=== PATIENT | female | born 1960 | race Caucasian/White ===

== ENCOUNTER 2020-07-02 02:43 | Outpatient (CLI) | payer BC, SELFPAY ==
--- NOTE | 2020-07-02 07:15 | DI.MAMMO_ITS ---
EXAM: MAMMO SCREENING CLINICAL HISTORY: screening,Z12.39. TECHNIQUE: Bilateral full field digital CC and MLO mammographic images were obtained with 3D tomosyn thesis and utilizing computer aided detection (CAD). COMPARISON: Prior outside mammograms dating back to 2012, the most recent being May 2018. FINDINGS: No new significant radiograph findings in the right breast. In the left breast on the CC 3D image there is a 8 x 3 millimeter nodular density located 5 cm in fro m the nipple. Not evident on prior studies. No malignant-appearing microcalcification groups in thi s region or elsewhere in either breast. There is no significant architectural distortion nor skin thickening-retraction. IMPRESSION: No radiographic evidence of malignancy in the right breast. 8 x 3 millimeter nodular density in the left breast as described above. Spot compression and view an d ultrasound recommended. BI-RADS Category 0 - Assessment Incomplete: Need additional imaging evaluation Breast Density - Category B - Scattered areas of fibroglandular density Breast density Category C or D implies that the patient has dense breast tissue. Dense breast tissue can make it harder to find cancer on a mammogram. Dense breast tissue is also associated with an incr eased risk of breast cancer. This information about the result of the mammogram report was provided to the patient to raise their awareness. Use this report when you speak with the patient about their risks for breast cancer, which includes their family history. At that time, you may recommend additional screening tests (Ultrasoun d or MRI) as these tests may add significant information. A negative radiographic report should not delay biopsy if a dominant or clinically suspicious mass is present. Up to ten percent of cancers are not identified on mammography. A negative report may reinforce clinical impression. Adenosis and dense breasts may obscure an underlying neoplasm. False positive reports average 6 to 10%. Patient will receive a letter notifying them of these results.
== END 2020-07-02 03:03 ==
PROVIDERS: PCP Nurse Practitioner Family; Visit Provider Nurse Practitioner Family
DX: Z12.31 Encounter for screening mammogram for malignant neoplasm of breast (principal); R92.8 Other abnormal and inconclusive findings on diagnostic imaging of breast
CPT/HCPCS: 77063; 77067

== ENCOUNTER 2020-07-12 01:27 | Outpatient (CLI) | payer BC, SELFPAY ==
--- NOTE | 2020-07-12 14:05 | DI.MAMMO_ITS ---
EXAM: MG MAMMO SCREEN CALL BACK UNI CLINICAL HISTORY: F/U MAMMO, LT BREAST NODULAR DENSITY TECHNIQUE: Spot compression views with tomographic imaging were performed. COMPARISON: 2012 through June 24 FINDINGS: No suspicious masses or suspicious microcalcifications are seen. There is a circumscribed low-density area of ovoid nodularity seen in the central, inferior left elen st. It is visible on previous exams and is not changed. IMPRESSION: BI-RADS Category 2 - Benign Findings Yearly screening mammography is recommended. Breast Density - Category B, scattered fibroglandular densities.
== END 2020-07-12 01:47 ==
PROVIDERS: PCP Nurse Practitioner Family; Visit Provider Nurse Practitioner Family
DX: Z12.31 Encounter for screening mammogram for malignant neoplasm of breast (principal); R92.8 Other abnormal and inconclusive findings on diagnostic imaging of breast; N64.59 Other signs and symptoms in breast
CPT/HCPCS: 77063; 77067

== ENCOUNTER 2020-08-09 21:42 | Outpatient (REF) | payer BC, SELFPAY ==
[2020-08-09 21:26] LABS: Anion Gap 9.7 mmol/L (3-11); BUN 14 mg/dL (7-18); CO2 29.3 mmol/L (21.0-32.0); CREATININE 0.8 mg/dL (0.55-1.02); Calcium 9.3 mg/dL (8.5-10.1); Calculated LDL 142 mg/dL (<100); Chloride 101 mmol/L (98-107); Cholesterol 209 mg/dL (<200); Glucose 96 mg/dL (74-106); HDL Cholesterol 44 mg/dL (40-60); Sodium 140 mmol/L (136-145); Triglyceride 118 mg/dL (<150)
[2020-08-09 21:30] LABS: Hemoglobin A1C 5.5 % (<5.7)
== END 2020-08-09 21:43 | disposition home or self-care (01) ==
LOC: NCHCN 21:42
PROVIDERS: PCP Nurse Practitioner Family; Visit Provider Nurse Practitioner Family
DX: E78.5 Hyperlipidemia, unspecified (principal)
CPT/HCPCS: 80048; 80061; 83036

== ENCOUNTER 2020-12-21 14:38 | Outpatient (REF) | payer BC, SELFPAY ==
[2020-12-21 18:10] LABS: HCT 42.1 % (36.0-46.0); HGB 13.7 g/dL (11.2-15.7); MCH 29.5 pg (27.0-33.0); MCHC 32.5 % (32.0-36.0); MCV 90.7 fL (80-95); MPV 10.4 fL (8.0-11.0); Platelet Count 361 10^3/uL (130-400); RBC 4.64 10^6/uL (3.93-5.22); RDW 12.1 % (11.7-14.6); RDW-SD 39.9 fL; WBC 5.73 10^3/uL (4.4-10.8)
[2020-12-21 18:14] LABS: ALT 27 U/L (14-59); AST 15 U/L (15-37); Albumin 3.7 g/dL (3.4-5.0); Alkaline Phosphatase 130 U/L (46-116); Anion Gap 3.5 mmol/L (3-11); BUN 9 mg/dL (7-18); Bilirubin, Total 0.4 mg/dL (0.2-1.0); CO2 31.5 mmol/L (21.0-32.0); CREATININE 0.8 mg/dL (0.55-1.02); Calcium 9.2 mg/dL (8.5-10.1); Chloride 104 mmol/L (98-107); Glucose 92 mg/dL (74-106); Potassium 3.9 mmol/L (3.5-5.1); Sodium 139 mmol/L (136-145); Total Protein 7.1 g/dL (6.4-8.2)
== END 2020-12-21 14:39 | disposition home or self-care (01) ==
LOC: LBN 14:38
PROVIDERS: PCP Nurse Practitioner Family; Visit Provider Nurse Practitioner Family
DX: Z01.818 Encounter for other preprocedural examination (principal)
CPT/HCPCS: 80053; 85027

== ENCOUNTER → 2021-10-11 00:07 | Outpatient (CLI) | payer BC, SELFPAY ==
--- OUTSIDE RECORDS SUMMARY | 2021-10-11 00:12 | XMS_ITS | Encounter Summary ---
:1960 Author Organization [facility] Address [facility] [place] [address] Care Team Providers Name Role Phone Erlinda Sears APRN Primary Care Provider Reason for Visit Consultation (Routine) - Authorized Specialty Diagnoses / Procedures Referred By Contact Refer red To Contact Dermatology Diagnoses Encounter for screening for malignant neoplasm of skin Erlinda Sears APRN [facility] Dermatology [address] [place], [place] [address] [place] [address] Fax: Referral ID Status Reason Start Expiration Visits Visits Date Date Requested Authorized [id number] Authorized Consult, 03/20/2022 6 6 Test & Treat 1 [facility] PCP Updated and/or Approved Encounter Details Date Type Department Care Team Description 06/27/2021 Office Visit Dermatology at [facility] F amily history of melanoma; Lina MAURO Folliculitis; [address] [facility] Seborrheic keratosis; [place] [address] Melanocytic nevus, unspecified location; [phone]-DERMATOLOGY [place], [place] [address] Social History Tobacco Use Types Packs/Day Years Used Date Never Smoker Smokeless Tobacco: Never Used Sex Assigned at Date Recorded Female 06/26/2021 6:08 PM EDT documented as of this encounter Progress Notes Ashley Raphael MD - 06/27/2021 3:30 PM EDT Images from the original note were not included. DEPARTMENT OF DERMATOLOGY Medical Dermatology Clinic Provider: Ashley Raphael MD Patient's preferred name Shayla Preferred contact method for results []Phone [x]myD-H []Letter Detailed phone message OK? yes Are there any other people with whom we may discuss your care? No Past Medical History Date, location, treatment Melanoma No Dysplastic nevi No SCC No BCC Left inner canthus, BCC s/p excision in [place], Year ? AKs No UV Exposure & Protection + history of tanning bed use + history of blistering sunburn Other relevant past medical history Rosacea Family History Details Melanoma Father- & brother? NMSC no Other relevant family history Brother-Prostate CA & UC Social History Occupation: Admin assistance broadcast associate Hobbies: Other: Pre-Procedure Screening Details Allergy to lidocaine, epinephrine, Dermabond, chlorhexidine, or adhesives No Bleeding disorder or blood thinners ASA Pacemaker, defibrillator, deep brain stimulator, cochlear implant No History of Present Illness: Shayla Dow is a 60 y.o. Patient is new and self-referred to the clinic for a full skin cancer screening: - Brown spots on abdomen present unknown times. Asymptomatic. No previous treatment Medications: Reviewed in eD-H Allergies: Reviewed in eD-H Skin Examination: Full skin examination: Patient asked to undress to their comfort level. Verbalized that the provider's preference is that patient remove all clothing and that the provider will not examine areas patient elects to keep covered. Examination of the scalp, hair, head, face, ears, neck, chest, axillae, abdomen, back, buttocks, genitalia, and upper and lower extremities was normal with the exception of thefindings below. Assessment/Plan # Folliculitis vs EIC, uncontrolled, chronic- Patient with scattered follicular-based erythematous papules on the chest & inferior buttocks. Folliculitis occurs due to the inflammation of the superficial hair follicle. The etiology can be variable including bacterial, fungal, viral although non in fectious cases have also been reported. In immunocompetent patients, predisposing factors include occulusion, maceration, shaving, vigorous application of topical medications or contaminated water. Medications including prolonged antibiotics, prednisone and EGFR inhibitors are also associated with thedisease. Plan: - Start chlorhexidine wash 2-4 times weekly in shower. -For active cysts start - Start Rx clindamycin 1% lotion: Apply topically to affected areas on the groin twice daily as needed. -Start Clindamycin swabs: Spot treat as needed. -Start Nystatin power: Apply topically to groin & under breasts up to 4 times daily to help keeparea dry. # Melanocytic Nevi- 2-6mm brown macules on trunk and extremities with reassuring pigment pattern on dermoscopy - Discussed benign appearing nevi based on today's exam - Reviewed the ABCDEs of moles and melanoma with the patient in detail to guide regular self assessment of any pigmented lesions. - Discussed the importance of sun protection and sun avoidance. The patient encouraged to use a broad sunscreen of at least SPF 30, with reapplication every 2 hours, to apply at least 15 minutes prior to sun exposure. - Recommended follow-up with dermatology if any changes in any pigmented lesions are noted or any concerns regarding new lesions arise. # Seborrheic keratoses - slaughter/brown waxy stuck-on papules and plaques on the trunk and extremities. - Reassured of the benign nature of these lesions - No treatment needed # Rosacea, stable, chronic - erythematotelangiectatic type - diffuse erythema and dilated telangiectasias on the bilateral cheeks. - Reviewed triggers for rosacea (alcohol, exercise, hot foods/drinks, spicy foods, sun exposure) andpoor response of erythema to medical managment. Discussed possible use of cover up or laser therapy including cost of laser therapy as it is a cosmetic procedure. - Patient opted to monitor # Family hx of melanoma -Father - Continue regular skin exams and photoprotection Other: ??? Sun protection discussed (protective clothing and SPF30+ broad-spectrum sunscreen) RTC: 1 year FSE []Note routed to secretary of police [x]Recall placed in scheduling system []Appointment scheduled at checkout Scribe attestation: Shayy Carbajla LPN has performed the documentation for this encounter in the presence of and acting as a scribe for Ashley Raphael MD. I performed the above scribed service and agree with the accuracy of the documentation in this encounter. Reviewed and signed by: Ashley Raphael MD Dermatology On [facility] documented in this encounter Plan of Treatment Not on filedocumented as of this encounter Visit Diagnoses Diagnosis Family history of melanoma Family history of other specified malign ant neoplasm Folliculitis Other specified disease of hair and hair follicles Seborrheic keratosis Other seborrheic keratosis Melanocytic nevus, unspecified location Rosacea documented in this encounter Care Teams Vocational Training Director Relationship Specialty Start Date End Date Erlinda Sears APRN PCP - General Family Medicine 05/07/[address] [place] [address] documented as of this encounter
--- OUTSIDE RECORDS SUMMARY | 2021-10-11 00:12 | XMS_ITS | Clinical Summary ---
:1960 Author Organization [facility] [place] [address] Care Team Providers Name Role Phone KikoErlinda tillman ROBERTO Primary Care Provider Allergies Active Allergy Reactions Severity Noted Date Comments Sulfa (Sulfonamide Antibiotics) Hives Medications Medication Sig Dispensed Refills Start Date End Date Status buPROPion SR (Wellbutrin TAKE 1 TABLET 0 08/16/2020 Active SR) 200 mg tablet BY MOUTH TWICE sustained-release 12 hr DAILY dextroamphetamine-ampheta 0 08/15/2020 Active mine (Adderall) 10 mg Tablet LORazepam (Ativan) 1 mg TAKE 1 TABLET 0 06/27/2020 Active Tablet BY MOUTH AT BEDTIME hydroCHLOROthiazide TAKE 1 TABLET 0 06/27/2020 Active (Hydrodiuril) 25 mg BY MOUTH DAILY Tablet clindamycin (CLEOCIN T) 1 Apply topically 60 mL 3 06/28/19 22 Active % LotionIndications: 2 times daily. Folliculitis clindamycin phosphate Apply once or 60 each 3 06/27/2021 Active (Clindacin ETZ) 1 % twice daily for SwabIndications: affected areas. Folliculitis nystatin (MYCOSTATIN) Apply topically 60 g 3 06/27/2021 Active 100,000 unit/gram 4 times daily. PowderIndications: Folliculitis Active Problems No known active problems Social History Tobacco Use Types Packs/Day Years Used Date Never Smoker Smokeless Tobacco: Never Used Sex Assigned at Date Recorded Female 06/26/2021 6:08 PM EDT Last Filed Vital Signs Vital Sign Reading Time Taken Comments Blood Pressure - - Pulse - - Temperature - - Respiratory Rate - - Oxygen Saturation - - Inhaled Oxygen Concentration - - Weight 121.6 kg (268 lb) 08/23/2020 1:37 PM EDT Height 168.1 cm (5' 6.2) 08/23/2020 1:37 PM EDT Body Mass Index 43 08/23/2020 1:37 PM EDT Plan of Treatment Health Maintenance Due Date Last Done Comments Covid-19 Vaccine (#1) 1966 HIV screen 10/16/1979 Hepatitis C Screening 10/16/1979 Lipid Screening 10/16/1979 Tdap adult 1980 Tetanus vaccine 1980 HPV test 10/16/1991 PAP Smear 10/16/1991 Breast Cancer Share Decision Needed 2001 Diabetes Screening (HgbA1C or Glucose) 2001 Colonoscopy 2006 Breast Cancer screening 10/16/2011 Zoster vaccine (1 of 2) 10/16/2011 Advance Directive 2016 Influenza (Flu) vaccine (1 of 1 - Influenza standard 12/05/2021 series) Insurance Payer Benefit Plan / Subscriber ID Effective Dates Phone Addre ss Type Group [employer] [place] [id number] 2020-Present [address] [place] [address] (Home) [place] [address] Shayla Dow Third Republican Self 1960 [address] [facility] (Home) [place] [address] Care Teams Slab Puller Relationship Specialty Start Date End Date Erlinda Sears APRN PCP - General Family Medicine 05/07/[address] [place], [place] [address]
--- OUTSIDE RECORDS SUMMARY | 2021-10-11 00:12 | XMS_ITS | Encounter Summary ---
:1960 Author Organization [facility] [place] [address] Care Team Providers Name Role Phone Erlinda Sears APRN Primary Care Provider Encounter Details Date Type Department Care Team Description 02/12/2021 External Results [place]Ray [place] [facility] [place] [address] [place] [address] Social History Tobacco Use Types Packs/Day Years Used Date Never Smoker Smokeless Tobacco: Never Used Sex Assigned at Date Recorded Female 06/26/2021 6:08 PM EDT documented as of this encounter Plan of Treatment Not on filedocumented as of this encounter Procedures Procedure Name Priority Date/Time Associated Diagnosis Comme nts MAMMOGRAM SCAN Routine 05/07/2011 Results for t his procedure are in the resu lts section. documented in this encounter Results Scan Doc: Mammogram (05/07/2011) Anatomical Region Laterality Modality Other Narrative This result has an attachment that is no t available. Unknown MEDIA MGR SCAN EXT ORDR/RSLT documented in this encounter Visit Diagnoses Not on filedocumented in this encounter Care Teams Crib Attendant Relationship Specialty Start Date End Date Erlinda Sears APRN PCP - General Family Medicine 05/07/[address] [place] [address] documented as of this encounter
--- OUTSIDE RECORDS SUMMARY | 2021-10-11 00:12 | XMS_ITS | Encounter Summary ---
:1960 Author Organization [facility] [place] [address] Care Team Providers Name Role Phone Erlinda Sears APRN Primary Care Provider Encounter Details Date Type Department Care Team Description 10/04/2020 TH Visit Plastic Surgery at [facility] Mane Queen, Macromastia (TeleHealth) [place] [address] [address] [phone] PLASTIC SURGERY [place], [place] [address] (Wo rk) Social History Tobacco Use Types Packs/Day Years Used Date Never Smoker Smokeless Tobacco: Never Used Sex Assigned at Date Recorded Female 06/26/2021 6:08 PM EDT documented as of this encounter Progress Notes Ivone Cotton H - 10/04/2020 3:00 PM EDT Plastic Surgery Follow Up Visit (Via telehealth) Plastic Surgery Follow Up Note Provider: Mane Queen M.D. PCP: Erlinda Sears APRN Requesting Physician: as above Reason for office visit: Symptomatic macromastia HPI: Patient presents via telehealth to finalize surgical planning for a breast reduction and to seeif she has achieved her goal loosing additional weight. She has last 10 pounds since her last visit.She is continues with OT for her bilateral shoulder pain. She is wondering if she may need to be admitted post surgery. She has financial concerns and wondersif this would cost her extra since this care is considered out of network. Breasts Bra size: 42DDD Goal cup size: unsure Breast Measurements Right Left Ptosis III III Masses - - Shoulder grooves + + Rash At IMF At IMF Axillary rolls Large Large Surgical Scars None None Breast Vol (estimate in cc) 1999 1999 Resection (estimate in gms) 1000 1000 Impression: Symptomatic bilateral breast hypertrophy. Bilateral breast reduction is indicated for relief of her breast-related symptoms. She watched the [facility] video on breast reduction, and was providedwith an ASPS brochure and informed consent on breast reduction. It reviews the surgical risks, alternate skin incisions and pedicle versus free nipple graft techniques. It also discusses the option of volume reduction by liposuction alone, which does not alter the nipple-areolar complex position. It talks about the impact of this surgery on decreasing breast cancer risk. We reviewed the timing of surgery relative to weight fluctuations and I've advised that surgery is best done at a realistic detention stable weight. We talked about the outpatient nature of the surgery,drains, postoperative recovery, and time required off work. The following risks were reviewed in the video or in our discussion: Surgical Risks which are greater with open reduction: bleeding with risk of hematoma (<5%); numbness, which may be temporary or permanent; scarring, including abnormal scarring; infection (5-10%); fat necrosis resulting in a breast mass and possible need for revision. I stressed the likelihood of minor problems with delayed wound healing (~30%) and the rare complication of nippleareolar necrosis. She is also aware that there may be some residual pain after the surgery and that there may possibly be some asymmetry. Vertical or Lollipop Incision: Less scarring on breast, but slightly greater risk for delayed healing and desire for scar revision. (She was informed that her insurer might not cover secondary revisions for scarring or asymmetry.) Jarquin or Turin Pattern Incision: More scarring on breast, but lower risk for scar revision. (She wasinformed that her insurer might not cover secondary revisions for scarring or asymmetry.) Pedicle Technique: volume of reduction may be limited by need to provide an adequate blood supply tothe nipple. There is a very small risk of nipple loss. Most women (~60%) will be able to breast-feed. Free Nipple Graft: The grafts will initially have no sensation and once fully healed may not respondto temperature and touch as they do now. She has also been informed that they may not look entirely normal and may have patchy hypopigmentation. She will not be able to breast feed with this technique. After fully discussing the options, she has opted to pursue a: Bilateral Breast Reduction Vertical, Pedicle Bilateral Breast Reduction Jarquin, Pedicle x Bilateral Breast Reduction Jarquin, FNG Anticipated resection: 1,000 grams right breast 1,000 grams left breast BSA [employer] Medicaid All other / [place] BSA [employer]/[place] Medicaid All others ([place]) 2.40 1000 [id number] Photos taken today with informed signed consent Potential Surgery Booking Information: Surgeon: Bret Duration: 2.5 hours Timeframe: Elective (January) Procedure: Bilateral breast reduction (possible drain placement) CPT: 67529 Surgical Technique: Bilateral Breast Reduction Jarquin, FNG Surgical site: Breasts Side: Bilateral Anesthesia: General Follow up: 7-10 days for HCK THHF: Y/N: no 4-7 day f/u for bolster removal) H&P: With PCP: yes Need to discontinue blood thinners pre-op? no Need mammogram? (at or over 40)yes Plan: Proceed with BBR Follow up one week post op bhavya Pope have performed the documentation for this encounter in the presence of and acting asa scribe for Mnae Queen MD. documented in this encounter Plan of Treatment Not on filedocumented as of this encounter Visit Diagnoses Diagnosis Macromastia Hypertrophy of breast documented in this encounter Care Teams Sole Inker Relationship Specialty Start Date End Date Erlinda Sears APRN PCP - General Family Medicine 05/07/20 [facility] [address] [place] [address] documented as of this encounter
--- OUTSIDE RECORDS SUMMARY | 2021-10-11 00:13 | XMS_ITS | Encounter Summary ---
:1960 Author Organization [place] [address] Care Team Providers Name Role Phone Moisés Das MD Primary Care Provider Encounter Details Date Type Department Care Team Description 02/03/2017 Ancillary Procedure Radiology Library at [facility] [address] [phone] Social History Tobacco Use Types Packs/Day Years Used Date Never Assessed Sex Assigned at Date Recorded Female 06/26/2021 6:08 PM EDT documented as of this encounter Plan of Treatment Not on filedocumented as of this encounter Procedures Procedure Name Priority Date/Time Associated Diagnosis Comme nts FILM LIBRARY Routine 02/03/2017 12:00 AM Results for this STORAGE ONLY MAMMO EDT procedure are in the results section. documented in this encounter Results Film Library- Storage Only Mammo (02/03/2017 12:00 AM EDT) Specimen (Source) Anatomical Location Collection Method / Collectio n Time Received Time / Laterality Volume Narrative RAD - 02/11/2021 4:24 PM EST This exam is auto-finalizing. It's purpo se is for storage only. Erlinda Sears CASE LINER [facility] FILM LIBRARY ORDERABLES Performing Organization Address City/State/ZIP Code Phon e Number RAD [place], [place] documented in this encounter Visit Diagnoses Not on filedocumented in this encounter Care Teams Agriculture Instructor Relationship Specialty Start Date End Date Moisés Das MD PCP - General 02/26/10 05/06/20 EMERGENCY DEPT [address] [place] [address] documented as of this encounter
--- OUTSIDE RECORDS SUMMARY | 2021-10-11 00:13 | XMS_ITS | Encounter Summary ---
:1960 Author Organization [facility] [place] [address] Care Team Providers Name Role Phone Moisés Das MD Primary Care Provider Encounter Details Date Type Department Care Team Description 06/02/2018 Ancillary Procedure Radiology Library at [facility] [address] [phone] Social History Tobacco Use Types Packs/Day Years Used Date Never Assessed Sex Assigned at Date Recorded Female 06/26/2021 6:08 PM EDT documented as of this encounter Plan of Treatment Not on filedocumented as of this encounter Procedures Procedure Name Priority Date/Time Associated Diagnosis Comme nts FILM LIBRARY Routine 06/02/2018 12:00 AM Results for this STORAGE ONLY MAMMO EST procedure are in the results section. documented in this encounter Results Film Library- Storage Only Mammo (06/02/2018 12:00 AM EST) Specimen (Source) Anatomical Location Collection Method / Collectio n Time Received Time / Laterality Volume Narrative RAD - 02/11/2021 4:25 PM EST This exam is auto-finalizing. It's purpo se is for storage only. Erlinda Sears PREVENTION RN [facility] FILM LIBRARY ORDERABLES Performing Organization Address City/State/ZIP Code Phon e Number [place], [place] documented in this encounter Visit Diagnoses Not on filedocumented in this encounter Care Teams Geriatric Social Work Professor Relationship Specialty Start Date End Date Moisés Das MD PCP - General 02/26/10 05/06/20 EMERGENCY DEPT [address] [place] [address] documented as of this encounter
--- OUTSIDE RECORDS SUMMARY | 2021-10-11 00:13 | XMS_ITS | Encounter Summary ---
:1960 [place] [address] Care Team Providers Name Role Phone Erlinda Sears APRN Primary Care Provider Encounter Details Date Type Department Care Team Description 07/12/2020 Ancillary Procedure [facility] [address] [phone] Social History Tobacco Use Types Packs/Day Years Used Date Never Assessed Sex Assigned at Date Recorded Female 06/26/2021 6:08 PM EDT documented as of this encounter Plan of Treatment Not on filedocumented as of this encounter Procedures Procedure Name Priority Date/Time Associated Diagnosis Comme nts FILM LIBRARY Routine 07/12/2020 12:00 AM Results for this STORAGE ONLY MAMMO EDT procedure are in the results section. documented in this encounter Results Film Library- Storage Only Mammo (07/12/2020 12:00 AM EDT) Specimen (Source) Anatomical Location Collection Method / Collectio n Time Received Time / Laterality Volume Narrative RAD - 12/18/2020 4:27 PM EDT This exam is auto-finalizing. It's purpo se is for storage only. Erlinda Sears APRN [facility] FILM LIBRARY ORDERABLES Performing Organization Address City/State/ZIP Code Phon e Number [place], [place] documented in this encounter Visit Diagnoses Not on filedocumented in this encounter Care Teams Barrel Rib Matting Machine Operator Relationship Specialty Start Date End Date Erlinda Sears APRN PCP - General Family Medicine 05/07/[address] [place] [address] documented as of this encounter
--- OUTSIDE RECORDS SUMMARY | 2021-10-11 00:13 | XMS_ITS | Encounter Summary ---
:1960 [place] [address] Care Team Providers Name Role Phone Erlinda Sears APRN Primary Care Provider Encounter Details Date Type Department Care Team Description 07/02/2020 Ancillary Procedure Radiology Library at [facility] [address] [phone] Social History Tobacco Use Types Packs/Day Years Used Date Never Assessed Sex Assigned at Date Recorded Female 06/26/2021 6:08 PM EDT documented as of this encounter Plan of Treatment Not on filedocumented as of this encounter Procedures Procedure Name Priority Date/Time Associated Diagnosis Comme nts FILM LIBRARY Routine 07/02/2020 12:00 AM Results for this STORAGE ONLY MAMMO EDT procedure are in the results section. documented in this encounter Results Film Library- Storage Only Mammo (07/02/2020 12:00 AM EDT) Specimen (Source) Anatomical Location Collection Method / Collectio n Time Received Time / Laterality Volume Narrative RAD - 12/18/2020 4:25 PM EDT This exam is auto-finalizing. It's purpo se is for storage only. Erlinda Sears APRN [facility] FILM LIBRARY ORDERABLES Performing Organization Address City/State/ZIP Code Phon e Number [place], [place] documented in this encounter Visit Diagnoses Not on filedocumented in this encounter Care Teams Duck Farmer Relationship Specialty Start Date End Date rElinda Sears APRN PCP - General Family Medicine 05/07/[address] [place] [address] documented as of this encounter
--- OUTSIDE RECORDS SUMMARY | 2021-10-11 00:13 | XMS_ITS | Encounter Summary ---
:1960 Author Organization [facility] [place] [address] Care Team Providers Name Role Phone Moisés Das MD Primary Care Provider Encounter Details Date Type Department Care Team Description 05/16/2014 Ancillary Procedure Radiology Library at Colleen Sears [address] [phone] Social History Tobacco Use Types Packs/Day Years Used Date Never Assessed Sex Assigned at Date Recorded Female 06/26/2021 6:08 PM EDT documented as of this encounter Plan of Treatment Not on filedocumented as of this encounter Procedures Procedure Name Priority Date/Time Associated Diagnosis Comme nts FILM LIBRARY Routine 05/16/2014 12:00 AM Results for this STORAGE ONLY MAMMO EST procedure are in the results section. documented in this encounter Results Film Library- Storage Only Mammo (05/16/2014 12:00 AM EST) Specimen (Source) Anatomical Location Collection Method / Collectio n Time Received Time / Laterality Volume Narrative RAD - 02/11/2021 4:24 PM EST This exam is auto-finalizing. It's purpo se is for storage only. Erlinda Sears STAFF FORESTER [facility] FILM LIBRARY ORDERABLES Performing Organization Address City/State/ZIP Code Phon e Number [place], [place] documented in this encounter Visit Diagnoses Not on filedocumented in this encounter Care Teams City Engineer Relationship Specialty Start Date End Date Moisés Das MD PCP - General 02/26/10 05/06/20 EMERGENCY DEPT [address] [place] [address] documented as of this encounter
--- OUTSIDE RECORDS SUMMARY | 2021-10-11 00:13 | XMS_ITS | Encounter Summary ---
:1960 Author Organization [facility] [place] [address] Care Team Providers Name Role Phone Moisés Das MD Primary Care Provider Encounter Details Date Type Department Care Team Description 01/28/2013 Ancillary Procedure Radiology Library at Colleen Sears [address] [phone] Social History Tobacco Use Types Packs/Day Years Used Date Never Assessed Sex Assigned at Date Recorded Female 06/26/2021 6:08 PM EDT documented as of this encounter Plan of Treatment Not on filedocumented as of this encounter Procedures Procedure Name Priority Date/Time Associated Diagnosis Comme nts FILM LIBRARY Routine 01/28/2013 12:00 AM Results for this STORAGE ONLY MAMMO EDT procedure are in the results section. documented in this encounter Results Film Library- Storage Only Mammo (01/28/2013 12:00 AM EDT) Specimen (Source) Anatomical Location Collection Method / Collectio n Time Received Time / Laterality Volume Narrative RAD - 02/11/2021 4:23 PM EST This exam is auto-finalizing. It's purpo se is for storage only. Erlinda Sears HOMEBIRTH MIDWIFE [facility] FILM LIBRARY ORDERABLES Performing Organization Address City/State/ZIP Code Phon e Number RAD [place], [place] documented in this encounter Visit Diagnoses Not on filedocumented in this encounter Care Teams Electrical Continuity Tester Relationship Specialty Start Date End Date Moisés aDs MD PCP - General 02/26/10 05/06/20 EMERGENCY DEPT [address] [place] [address] documented as of this encounter
--- OUTSIDE RECORDS SUMMARY | 2021-10-11 00:13 | XMS_ITS | Encounter Summary ---
:1960 Author Organization [facility] [place] [address] Care Team Providers Name Role Phone Moisés Das MD Primary Care Provider Encounter Details Date Type Department Care Team Description 03/20/2016 Ancillary Procedure Radiology Library at Colleen Sears [address] [phone] Social History Tobacco Use Types Packs/Day Years Used Date Never Assessed Sex Assigned at Date Recorded Female 06/26/2021 6:08 PM EDT documented as of this encounter Plan of Treatment Not on filedocumented as of this encounter Procedures Procedure Name Priority Date/Time Associated Diagnosis Comme nts FILM LIBRARY Routine 03/20/2016 12:00 AM Results for this STORAGE ONLY MAMMO EST procedure are in the results section. documented in this encounter Results Film Library- Storage Only Mammo (03/20/2016 12:00 AM EST) Specimen (Source) Anatomical Location Collection Method / Collectio n Time Received Time / Laterality Volume Narrative RAD - 02/11/2021 4:24 PM EST This exam is auto-finalizing. It's purpo se is for storage only. Erlinda Sears UTILITY SYSTEM OPERATOR [facility] FILM LIBRARY ORDERABLES Performing Organization Address City/State/ZIP Code Phon e Number [place], [place] documented in this encounter Visit Diagnoses Not on filedocumented in this encounter Care Teams Rejogger Relationship Specialty Start Date End Date Moisés Das MD PCP - General 02/26/10 05/06/20 EMERGENCY DEPT [address] [place] [address] documented as of this encounter
--- OUTSIDE RECORDS SUMMARY | 2021-10-11 00:13 | XMS_ITS | Encounter Summary ---
:1960 Author Organization [facility] [place] [address] Care Team Providers Name Role Phone Erlinda Sears APRN Primary Care Provider Encounter Details Date Type Department Care Team Description 08/09/2020 Telephone Plastic Surgery at [facility] [place] [phone] Social History Tobacco Use Types Packs/Day Years Used Date Never Assessed Sex Assigned at Date Recorded Female 06/26/2021 6:08 PM EDT documented as of this encounter Plan of Treatment Not on filedocumented as of this encounter Visit Diagnoses Not on filedocumented in this encounter Care Teams Automatic Stacker Relationship Specialty Start Date End Date Erlinda Sears APRN PCP - General Family Medicine 05/07/[address] [place] [address] documented as of this encounter
--- OUTSIDE RECORDS SUMMARY | 2021-10-11 00:13 | XMS_ITS | Encounter Summary ---
:1960 Author Organization [place] [address] Care Team Providers Name Role Phone Erlinda Sears APRN Primary Care Provider Reason for Visit Reason Comments Advice Only BBR Consultation (Routine) - Closed Specialty Diagnoses / Procedures Referred By Contact Refer red To Contact Plastic Surgery Diagnoses Hypertrophy of breast macromastia Erlinda Sears APRN [facility] Plastic Surg [address]m [address] [place] [phone] Phone: Referral ID Status Reason Start Date Expiration Date Visits V isits Requested Authorized [id number] Closed Consult, 08/09/2020 08/09/2021 1 1 Test & Treat Encounter Details Date Type Department Care Team Description 08/23/2020 Office Visit Plastic Surgery at [facility] Mane Queen MD [facility] [address] [place] [phone] PLASTIC SURGERY [phone] [place], [place] [address] (Wo rk) Social History Tobacco Use Types Packs/Day Years Used Date Never Smoker Smokeless Tobacco: Never Used Sex Assigned at Date Recorded Female 06/26/2021 6:08 PM EDT documented as of this encounter Last Filed Vital Signs Vital Sign Reading Time Taken Comments Blood Pressure - - Pulse - - Temperature - - Respiratory Rate - - Oxygen Saturation - - Inhaled Oxygen Concentration - - Weight 121.6 kg (268 lb) 08/23/2020 1:37 PM EDT Height 168.1 cm (5' 6.2) 08/23/2020 1:37 PM EDT Body Mass Index 43 08/23/2020 1:37 PM EDT documented in this encounter Patient Instructions Patient InstructionsVooctavia-Deb Gould RMA - 08/23/2020 1:30 PM EDT Preoperative Instructions You have been scheduled to have plastic surgery. The instructions below are specific to your procedure. If you are a smoker, we ask that you stop at least 2 months prior to your surgical date and remain nicotine free for at least a month after surgery. Smoking can impair healing and increase your chance of infection. One Month prior to Surgery Schedule a pre-operative physical with your primary care doctor Two Weeks prior to Surgery Do not take any Aspirin or aspirin containing products for the 2 weeks leading up to surgery. You may resume taking 48 hours after surgery. Do not take medications containing Ibuprofen. Do not take anyanti-steroidal's such as Advil, Aleve, Celebrex, Daypro, Indocin, Midol, Motrin, Naproxen, Nuprin and Toradol. These medications increase your risk of bleeding. You may resume taking any of these medications 48 hours after surgery. Stop Vitamin E, Garlic supplements, Ginseng, Fish Oil tablets, Ginkgo and Ruben's Wort and any other herbals. You may resume taking 48 hours after surgery. If you need medication for pain, you may take Tylenol or extra strength Tylenol during this two weekperiod. One Week prior to Surgery Please call if you feel ill, have cold or fever, have a rash or breaks in the skin near your surgical site. Stay hydrated. Avoid alcohol and recreational drugs Three Days before Surgery Do not shave near your surgical site One Day before Surgery Shower the night before and the morning of surgery using an antibacterial soap (Dial or Lever 2000) or Hibiclens wash The Same Day Surgery Team will call you the business day before your surgery to give you instructions specific to your procedure and your surgical time. Generally, you will be asked not to eat any solids after midnight. You are allowed clear liquids (water, jossy may, apple juice, black coffee and plain tea) until 2 hours prior to your surgery. Day of Surgery A cat driver is required at time of discharge. If you are a Same Day procedure and do not have a cat driver your surgery will be canceled. DO NOT wear any jewelry, makeup or artificial nails the day of surgery. DO NOT apply any lotions, powders or deodorants on or near the surgical site the day of surgery. Do wear comfortable, loose fitting clothes. Anesthesia will meet with you the morning of surgery. They will perform an assessment and review your history with you. [facility] has instituted the requirement of COVID-19 testing for all patient undergoing procedures that require inpatient admission to the facility. A Nurse from the COVID-19 team will reach out to you to assist with the planning and implementation of a COVID-19 test prior to your surgicaldate. Contact Information: During regular office hours (Thursday- Thursday, non-holiday 8:00 am- 5:00 pm) For an appointment or insurance questions For questions pertaining to your surgical date [phone] For nursing related questions [phone] On weekends, holidays or after office hours: Call and ask the heater operator helper to page the Plastic Surgery Resident waste collection driver. documented in this encounter Progress Notes Mane Queen MD - 08/23/2020 1:30 PM EDT Plastic Surgery Consultation Note Provider: Mane Queen M.D. PCP: Moisés Das MD Requesting Physician: as above Reason for office visit: Symptomatic macromastia HPI: Shayla Dow is a 59 y.o. female who presents today for evaluation of symptomatic macromastia. She is unaccompanied for today???s visit. She expresses that her large breast cause significant back pain,shoulder pain. shoulder grooving,neck pain and bilateral arm numbness. Her breasts are very heavy and very dense which causes significantdiscomfort. She currently wears a 42 DDD. She has difficulty finding clothing and bras that fit appropriately. She states that she has very good hygiene, doesn't complain of rashes underneath her breasts. She would like to have smaller breasts but is unsure of what cup size. There is no family h/o breast cancer. She has had several mammograms and states that she was told that her breasts are very dense. She currently weights 270 pounds but her goal weight would be to be under 200 pounds. She does not smoke. She has had several surgical procedures and reports no difficulty with post op complications. It was suggested that she may consider gastric bypass but at this time, she is not interested. She has completed a breast specific questionnaire: Pertinent findings to emphasize are: No flowsheet data found. Breast Q Reduction PreOp 08/23/2020 Satisfaction with Breast 17 Psychosocial Wellbeing 49 Sexual well-being 0 Physical Well-being 44 How your breasts look in clothes? Very dissatisfied How your breast size matches the rest of your body? Somewhat dissatisfied The size of your breasts? Very dissatisfied The shape of your breasts when you are wearing a bra? Very dissatisfied How equal in size your breasts are to each other? Very dissatisfied How comfortably your bras fit? Very dissatisfied The shape of your breasts when you are not wearing a bra? Very dissatisfied How you look in the mirror clothed? Somewhat dissatisfied How your breasts sit/hang on your chest? Very dissatisfied How normal your breasts look? Very dissatisfied How you look in the mirror unclothed? Very dissatisfied Confident in a social setting? None of the time Of equal worth to other women? A little of the time Good about yourself? Most of the time Self-assured? Most of the time Confident in your clothes? Most of the time Accepting of your body? Most of the time That your appearance matches who you are inside? A little of the time Confident about your body? Most of the time Attractive? Some of the time Comfortable/at ease during sexual activities? A little of the time Confident sexually? Most of the time Sexually attractive in your clothes? Most of the time Sexy when unclothed? A little of the time Headaches? Some of the time Pain in your breast area? Some of the time Lack of energy? Some of the time Difficulty doing vigorous physical activities (e.g. running or exercising)? All of the time Feeling physically unbalanced? All of the time Shoulder pain? All of the time Difficulty sleeping because of discomfort in your breast area? All of the time Neck pain? Some of the time Painful gouges or grooves in your shoulders from your bra straps? All of the time Feeling physically uncomfortable? All of the time Rashes under your breasts? Some of the time Back pain? Some of the time Arm pain? Some of the time Pain, numbness or tingling in your hands because of your breast size? Some of the time Conservative Therapy Treatments: [facility] CONSERVATIVE THERAPY TREATMENTS 08/23/2020 Physical therapy was effective at relieving my symptoms. Some Relief How many months did you try this treatment? More than 6 months Use of custom support bras relieved my symptoms. No Relief How many months did you try this treatment? More than 6 months Treatment by a chiropractor relieved my symptoms. Never Tried Weight loss relieved my symptoms. No Relief How many months did you try this treatment? More than 6 months Non-narcotic medications (such as Tylenol, Aspirin, Ibuprofen, Aleve, etc) have relieved my symptoms. No Relief How many months did you try this treatment? More than 6 months Narcotic pain relievers (such as Tylenol #3, Percocet, etc) have relieved my symptoms. Never Tried Other Treatments have relieved my symptoms. No Relief How many months did you try this treatment(s)? More than 6 months Over the counter or prescription medication has relieved the rashes under my breasts. Never Tried Examination: BMI: Ht 168.1 cm (5' 6.2) Wt 121.6 kg (268 lb) BMI 43.00 kg/m?? BSA: Body surface area is 2.38 meters squared. General: On my examination today, the patient appears to be in good health. Her emotional outlook ispositive and she asked appropriate questions throughout the visit. Breasts Bra size: 42DDD Goal cup size: [...] of her breast-related symptoms. She watched the [employer] video on breast reduction, and was providedwith [...] surgery is best done at a realistic assisted stable weight. We talked about the outpatient [...] that there may possibly be some asymmetry. Discussed in detail with the patient that I would like to have her try to loose additional weight prior to surgery to help decrease her post op risks. She will focus on this over the next 6 weeks. We will touch base at the time via telehealth/telephone to check on her progress. Vertical or Lollipop Incision: Less scarring on breast, but slightly greater risk for delayed healing and desire for scar revision. (She was informed that her insurer might not cover secondary revisions for scarring or asymmetry.) Jarquin or Eyota Pattern Incision: More scarring on breast, but [...] Bilateral breast reduction (possible drain placement) CPT: 53675 Surgical Technique: Will need to confirm during telehealth visit Surgical site: Breasts Side: Bilateral Anesthesia: General Follow up: 7-10 days for HCK THHF: Y/N: no 4-7 day f/u for bolster removal) H&P: With PCP: yes Need to discontinue blood thinners pre-op? no Need mammogram? (at or over 40)yes Plan: Follow up in 6 weeks via telephone to re-discuss BBR. Ibhavya have performed the documentation for this encounter in the presence of and acting asa scribe for Mane Queen MD. documented in this encounter Plan of Treatment Not on filedocumented as of this encounter Visit Diagnoses Diagnosis Macromastia Hypertrophy of breast documented in this encounter Care Teams Disk Operator Relationship Specialty Start Date End Date Erlinda Sears APRN PCP - General Family Medicine 05/07/[address] [place] [address] documented as of this encounter
--- NOTE | 2021-10-11 16:14 | DI.MAMMO_ITS ---
Exam(s) MAMMO SCREENING EXAM: MAMMO SCREENING CLINICAL HISTORY: screening,z12.39 TECHNIQUE: Mammograms were interpreted according to the usual protocol including computer analysis w [employer] CAD system, tomosynthesis and C-view imaging. COMPARISON: 2012 through 2020 FINDINGS: The breasts are composed of mainly fatty density , Breast Density category A. No suspicious masses or suspicious microcalcifications are seen. No skin thickening or abnormal axillary lymph nodes are seen. There has been no significant change from prior exams. IMPRESSION: BI-RADS Category 1, Negative mammogram Yearly screening mammography is recommended. Breast Density - Category A, fatty density. A negative radiographic report should not delay biopsy if a dominant or clinically suspicious mass is present. Up to ten percent of cancers are not identified on mammography. A negative report may reinforce clinical impression. Adenosis and dense breasts may obscure an underlying neoplasm. False positive reports average 6 to 10%. Patient will receive a letter notifying them of these results.
== END ==
PROVIDERS: PCP Nurse Practitioner Family; Visit Provider Nurse Practitioner
DX: Z12.31 Encounter for screening mammogram for malignant neoplasm of breast (principal)
CPT/HCPCS: 77063; 77067

== ENCOUNTER → 2023-01-07 03:00 | Outpatient (CLI) | payer BC, SELFPAY ==
--- NOTE | 2023-01-07 14:22 | DI.MAMMO_ITS ---
Exam(s) MAMMO SCREENING EXAM: MAMMO SCREENING CLINICAL HISTORY: screening,z12.39. TECHNIQUE: Bilateral full field digital CC and MLO mammographic images were obtained with 3D tomosyn thesis and utilizing computer aided detection (CAD). COMPARISON: Prior mammograms were reviewed. FINDINGS: There has been no significant change in the appearance and distribution of the fibroglandular tissue. There are no new spiculated masses nor malignant appearing microcalcification groups. There is no significant architectural distortion nor skin thickening-retraction. IMPRESSION: No radiographic evidence of malignancy. BI-RADS Category 1 - Negative Breast Density - Category A - Almost entirely fatty Breast density Category C or D implies that the patient has dense breast tissue. Dense breast tissue can make it harder to find cancer on a mammogram. Dense breast tissue is also associated with an incr eased risk of breast cancer. This information about the result of the mammogram report was provided to the patient to raise their awareness. Use this report when you speak with the patient about their risks for breast cancer, which includes their family history. At that time, you may recommend additional screening tests (Ultrasoun d or MRI) as these tests may add significant information. A negative radiographic report should not delay biopsy if a dominant or clinically suspicious mass is present. Up to ten percent of cancers are not identified on mammography. A negative report may reinforce clinical impression. Adenosis and dense breasts may obscure an underlying neoplasm. False positive reports average 6 to 10%. Patient will receive a letter notifying them of these results.
== END ==
PROVIDERS: PCP Nurse Practitioner Family; Visit Provider Nurse Practitioner Family
DX: Z12.31 Encounter for screening mammogram for malignant neoplasm of breast (principal)
CPT/HCPCS: 77063; 77067

== ENCOUNTER → 2023-02-09 00:32 | Outpatient (CLI) | payer BC, SELFPAY ==
--- NOTE | 2023-02-09 08:00 | DI.RAD_ITS ---
Exam(s) XR KNEE LT 3V AP,LAT,SEKOU EXAM: XR KNEE LT 3V AP,LAT,SEKOU CLINICAL HISTORY: bilateral knee pain,M25.561,M25.562. TECHNIQUE: 2D digital imaging was performed of the left knee. Three images were obtained. AP, late ral and PA tunnel views were obtained. COMPARISON: No exams were available for comparison FINDINGS: BONES: No acute fracture is present. No bony destructive lesion is seen. JOINTS: There are postsurgical changes of a left total knee replacement. The orthopedic hardware era ears in good position. Small joint effusion. No loose body. SOFT TISSUE: Normal. IMPRESSION: Left total knee replacement. DATA REPOSITORY: RADIATION DOSE DELIVERED:
--- NOTE | 2023-02-09 08:00 | DI.RAD_ITS ---
Exam(s) XR KNEE RT 3V AP,LAT,SEKOU EXAM: XR KNEE RT 3V AP,LAT,SEKOU CLINICAL HISTORY: bilateral knee pain,M25.561,M25.562. TECHNIQUE: 2D digital imaging was performed of the right knee. Three views obtained. AP, lateral an d PA tunnel views were obtained. COMPARISON: No priors for comparison. FINDINGS: BONES: No acute fracture is present. No bony destructive lesion is seen. The proximal aspect of an in tramedullary sandip is seen in the tibia. JOINTS: Tricompartment degenerative changes are present characterized by joint space narrowing and os teophytes. The findings are most marked in the medial femoral tibial joint. No joint effusion is se en. SOFT TISSUE: Normal. IMPRESSION: Osteoarthritis of the knee. DATA REPOSITORY: RADIATION DOSE DELIVERED:
== END ==
PROVIDERS: PCP Nurse Practitioner Family; Visit Provider Nurse Practitioner Family
DX: M17.11 Unilateral primary osteoarthritis, right knee (principal); Z96.652 Presence of left artificial knee joint
CPT/HCPCS: 73562

== ENCOUNTER 2023-03-10 05:43 | Emergency (ER) | payer BC, SELFPAY ==
[2023-03-10 05:48] VITALS: BP 172/88; PULSE 105; RESP 18; TEMP 37.1
--- NOTE | 2023-03-10 06:00 | DI.US_ITS ---
Exam(s) US LOWER EXTREMITY VENOUS RT EXAM: US LOWER EXTREMITY VENOUS RT CLINICAL HISTORY: right leg pain eval for dvt. TECHNIQUE: Lower extremity venous ultrasound performed using grayscale, color-flow, and spectral Do ppler analysis. COMPARISON: No exams were available for comparison FINDINGS: The common femoral, femoral and popliteal veins demonstrate normal compressibility, augmentation, and color Doppler. The posterior tibial veins are patent. No saphenous vein thrombosis or other superfi cial venous thrombosis is seen. There is a Lim's cyst measuring 5.3 x 2.3 x 4.6 cm.. IMPRESSION: Negative lower extremity ultrasound. No evidence of DVT. DATA REPOSITORY:
--- NOTE | 2023-03-10 06:14 | ED.GENADUL_ITS ---
Discharge Plan Discharge Details Chief Complaint: Vascular Primary Care Provider: Erlinda Sears ED Provider: Katelyn Sow Home Meds and New Rx's Prescriptions: No Action sodium chloride [Armstrong Nasal] 0.65 % aerosol,spray 1 spray intranasal ONCE aspirin [Annelise Low Dose Aspirin] 81 mg tablet,delayed release (DR/EC) 40.5 mg PO .QOD Patient Comments: takes half a baby asprin every other day fluticasone propionate [Allergy Relief (fluticasone)] 50 mcg/actuation spray,suspension 1 spray intranasal BID PRN (Reason: allergy symptoms) Rx Instructions: administer into each nostril albuterol sulfate 90 mcg/actuation HFA aerosol inhaler 2 puff inhalation Q6H PRN (Reason: shortness of breath or wheezing) Qty: 8.5 3RF bupropion HCl 200 mg tablet sustained-release 12 hr 200 mg PO DAILY Qty: 90 3RF hydrochlorothiazide 25 mg tablet 25 mg PO DAILY Qty: 90 3RF estradiol 0.01 % (0.1 mg/gram) cream 0.5 g vaginal .Twice a week Qty: 42.5 4RF dextroamphetamine-amphetamine [Adderall] 10 mg tablet 10 mg PO DAILY MDD 1 tab Qty: 28 0RF lorazepam 0.5 mg tablet 0.75 mg PO DAILY MDD 1.5 tabs PRN (Reason: anxiety) Qty: 45 2RF Rx Instructions: Take 1.5 tablets once a day as needed for anxiety Medical Decision Making Emergent evaluation of right lower extremity pain. Patient concerned for a DVT. She has a normal examination. Unclear if her prior DVT was true blood clot versus a Lim's cyst but she says that she was treated with anticoagulation. She has no risk factors for DVT. She is requesting an ultrasound and understands that ultrasound is not available at this hour but she would like to wait until they come in for the morning. I have placed the order for an ultrasound to rule out a DVT. She will be signed out to oncoming provider pending the ultrasound Medical Records Medical records reviewed: Yes I reviewed the patient's medical records. HPI General Date/Time Provider Initiated Documentation: 03/10/23 06:12 . Limitations to Documentation: no limitations . Information obtained by: patient . HPI Narrative: 62-year-old female with past medical history of depression presents for evaluation of right lower extremity pain. She reports pain behind her right knee. Not associated with trauma. It is a sharp, intermittent pain. She reports that it feels similar to the pain that she had when she had a blood clot. She reports blood clot in that leg 10 years ago. Was treated with 6 months of anticoagulation. She also reports history of a Lim's cyst. Denies any recent surgery, travel or immobilization, does not smoke, does not take any hormonal therapy. She reports that her prior blood clot was caused by the Lim's cyst. Related Data Home Medications Medication Instructions Recorded Confirmed sodium chloride 0.65 % nasal spray 1 spray intranasal ONCE 05/10/20 03/10/23 aerosol (StyleChat by [employer] Mobile Nasal) aspirin 81 mg tablet,delayed 40.5 mg PO .QOD 09/06/21 03/10/23 release (Annelise Low Dose Aspirin) fluticasone propionate 50 1 spray intranasal BID PRN allergy 09/06/21 03/10/23 mcg/actuation nasal symptoms spray,suspension (Allergy Relief (fluticasone)) albuterol sulfate 90 mcg/actuation 2 puff inhalation Q6H PRN 09/08/22 03/10/23 aerosol inhaler shortness of breath or wheezing #8.5 grams bupropion HCl 200 mg tablet,12 hr 200 mg PO DAILY #90 tabs 09/08/22 03/10/23 sustained-release hydrochlorothiazide 25 mg tablet 25 mg PO DAILY #90 tabs 10/16/22 03/10/23 estradiol 0.01% (0.1 mg/gram) 0.5 g vaginal .Twice a week #42.5 12/25/22 03/10/23 vaginal cream grams dextroamphetamine-amphetamine 10 10 mg PO DAILY #28 tabs 12/29/22 03/10/23 mg tablet (Adderall) lorazepam 0.5 mg tablet 0.75 mg (1.5 x 0.5 mg) PO DAILY 01/12/23 03/10/23 PRN anxiety #45 tabs Previous Rx's Medication Instructions Recorded albuterol sulfate 90 mcg/actuation 2 puff inhalation Q6H PRN 09/08/22 aerosol inhaler shortness of breath or wheezing #8.5 grams bupropion HCl 200 mg tablet,12 hr 200 mg PO DAILY #90 tabs 09/08/22 sustained-release hydrochlorothiazide 25 mg tablet 25 mg PO DAILY #90 tabs 10/16/22 estradiol 0.01% (0.1 mg/gram) 0.5 g vaginal .Twice a week #42.5 12/25/22 vaginal cream grams dextroamphetamine-amphetamine 10 10 mg PO DAILY #28 tabs 12/29/22 mg tablet (Adderall) lorazepam 0.5 mg tablet 0.75 mg (1.5 x 0.5 mg) PO DAILY 01/12/23 PRN anxiety #45 tabs Allergies Allergy/AdvReac Type Severity Reaction Status Date / Time Sulfa (Sulfonamide Allergy Mild Hives Verified 03/10/23 05:54 Antibiotics) prednisone Allergy Unknown Intolerance Verified 03/10/23 05:54 General Stated Complaint: Vascular VIRA: 4 PFSH All Active Problems Digital mucous cyst of finger of left hand (Acute) Essential hypertension (Chronic) Obstructive sleep apnea (Chronic) Hyperlipidemia (Chronic) Mild persistent asthma (Chronic) Osteoarthritis (Chronic) Major depressive disorder (Chronic) Insomnia (Chronic) IBS (irritable bowel syndrome) (Chronic) Macromastia (Chronic) Vitamin D deficiency (Chronic) Tubular adenoma of colon (Chronic) Allergic rhinitis (Chronic) Medical History COVID-19 virus infection (~11/2021) Synovial cyst of popliteal space [Lim], right knee Basal cell carcinoma (BCC) of medial canthus of left eye Deep vein thrombosis (DVT) of popliteal vein of right lower extremity 2016 s/p coumadin x 6mo Surgical History S/P LASIK surgery of both eyes S/P nasal septoplasty S/P cholecystectomy S/P ORIF (open reduction internal fixation) fracture Left wrist and RLE Status post left knee replacement (~01/2013) History of bladder suspension procedure (~2011) Family History Mother , 53 Leukemia Father , 64 Melanoma Stroke Hypertension Sister Asthma Diabetes Hypertension Sister Diabetes Hypertension Stroke Sister Diabetes Sister Asthma Hyperlipidemia Brother , 65 Diabetes Emphysema of lung Heart disease Hyperlipidemia Brother No problems noted. Brother Diabetes Melanoma Colitis Brother Diabetes Brother , 54 Prostate cancer Daughter Depression Asthma Son No problems noted. Paternal Grandfather , 60's Liver cancer Paternal Grandmother , 95 Stroke Maternal Grandfather , 40s No problems noted. Maternal Grandmother , 63 Colon cancer Social History Smoking/Tobacco Use Status: Never Tobacco: How many years used: 0 Second Hand Exposure: Yes Smoking risk assessment performed?: Yes Alcohol Intake: current Alcohol Intake frequency: a few times a month Alcohol type: wine Drug use: Never Substance use type: does not use Caregiver/Support person: No Household members: none Housing: house Communication Needs: Corrective Lenses Do you need help understanding health information?: Never Pets and animals: Yes Pets and animals: dog(s) Sexually active: No Do you think of yourself as: straight/heterosexual Current gender identity: female What is your relationship status?: How often do you talk on the phone with friends or family?: three or more times per week How often do you get together with friends or relatives?: once per week How often do you attend religious or adventist services?: 1-3 times per year Do you belong to any clubs or organized social groups?: no Panel score (0-1 are the most socially isolated patients): 1 What type of physical activity do you participate in: walking Duration: 30-45 minutes/day Frequency: daily Jessica/Scientologist: Spiritism Special jessica needs: No Seatbelt use: always Helmet use: Yes Helmet use: always Drive 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 Do you feel safe in your relationship?: Yes Victim of physical abuse: No Victim of emotional abuse: No Victim of sexual abuse: No Would you like helpful sources: No Female Reproductive History Menstrual Menopause type: natural History History 2 Para 2 Hx # Term Pregnancies Multiple births Hx # Pregnancies Ectopic pregnancies AB induced Hx Number of Living Children 2 AB spontaneous Exam Narrative Exam Narrative: review of Systems: All systems reviewed & are unremarkable except as noted in HPI and below Well-developed, no acute distress NACT PERRL, normal conjunctiva RRR Unlabored respiratory effort Nondistended abdomen Extremities w/o deformity, no cyanosis, no edema. no swelling, no pain with palpation No rashes or lesions. no focal neurologic deficits Appropriate mood and affect Course Vital Signs Vital signs: Vital Signs Temperature 37.1 C 03/10/23 05:48 Pulse 105 H 03/10/23 05:48 Respiratory Rate 18 03/10/23 05:48 Blood Pressure 172/88 H 03/10/23 05:48 Temperature 37.1 C 03/10/23 05:48 Temperature Source Temporal Artery Scan 03/10/23 05:48 Pulse 105 H 03/10/23 05:48 Respiratory Rate 18 03/10/23 05:48 Respiratory Effort Normal 03/10/23 05:56 Blood Pressure 172/88 H 03/10/23 05:48 Pain Level 5 03/10/23 05:48 Sign Out Sign Out Data: Sign Out Comment: 62y F with posterior right leg pain x1 week. reports history of DVT 10 years ago that felt the same. wants to wait for US today. exam benign. Last updated by Katelyn Sow MD at 03/10/23 06:16
--- NOTE | 2023-03-10 08:41 | ED.PROG_ITS ---
Date of service: 03/10/23 Time of Service: 08:41 Medical Decision Making Ultrasound lower extremity negative for DVT. Patient rest comfortably no acute distress. Sign Out Sign Out Data: Sign Out Comment: 62y F with posterior right leg pain x1 week. reports history of DVT 10 years ago that felt the same. wants to wait for US today. exam benign. Last updated by Katelyn Sow MD at 03/10/23 06:16 Discharge Plan Disposition Patient Disposition: Home Condition: Improving Discharge Details Chief Complaint: Vascular Clinical Impression: Leg pain Primary Care Provider: Erlinda Sears ED Provider: Pj Hollins Home Meds and New Rx's Prescriptions: No Action sodium chloride [[place]swick Nasal] 0.65 % aerosol,spray 1 spray intranasal ONCE aspirin [Annelise Low Dose Aspirin] 81 mg tablet,delayed release (DR/EC) 40.5 mg PO .QOD Patient Comments: takes half a baby asprin every other day fluticasone propionate [Allergy Relief (fluticasone)] 50 mcg/actuation spray,suspension 1 spray intranasal BID PRN (Reason: allergy symptoms) Rx Instructions: administer into each nostril albuterol sulfate 90 mcg/actuation HFA aerosol inhaler 2 puff inhalation Q6H PRN (Reason: shortness of breath or wheezing) Qty: 8.5 3RF bupropion HCl 200 mg tablet sustained-release 12 hr 200 mg PO DAILY Qty: 90 3RF hydrochlorothiazide 25 mg tablet 25 mg PO DAILY Qty: 90 3RF estradiol 0.01 % (0.1 mg/gram) cream 0.5 g vaginal .Twice a week Qty: 42.5 4RF dextroamphetamine-amphetamine [Adderall] 10 mg tablet 10 mg PO DAILY MDD 1 tab Qty: 28 0RF lorazepam 0.5 mg tablet 0.75 mg PO DAILY MDD 1.5 tabs PRN (Reason: anxiety) Qty: 45 2RF Rx Instructions: Take 1.5 tablets once a day as needed for anxiety Discharge Instructions Instructions: Leg Pain (ED) Additional Instructions: Please follow-up closely with your primary care physician.
[2023-03-10 08:47] VITALS: BP 153/102; PULSE 91; RESP 20; O2SAT 95
== END 2023-03-10 08:48 | disposition home or self-care (01) ==
PROVIDERS: Emergency Provider Emergency Medicine; PCP Nurse Practitioner Family
DX: M79.661 Pain in right lower leg (principal); I10 Essential (primary) hypertension; E78.5 Hyperlipidemia, unspecified; Z79.82 Long term (current) use of aspirin; Z86.718 Personal history of other venous thrombosis and embolism
CPT/HCPCS: 00123; 99284; 93971; 99283

== ENCOUNTER 2023-04-28 03:44 | Outpatient (CLI) | payer BC, SELFPAY ==
[2023-04-28 13:20] LABS: Anion Gap 3.5 mmol/L (3-11); BUN 11 mg/dL (7-18); CO2 32.5 mmol/L (21.0-32.0); CREATININE 0.9 mg/dL (0.55-1.02); Calcium 8.9 mg/dL (8.5-10.1); Calculated LDL 138 mg/dL (<100); Chloride 104 mmol/L (98-107); Cholesterol 212 mg/dL (<200); Estimated GFR 72.73 (mL/min/1.73m2); Glucose 101 mg/dL (74-106); HDL Cholesterol 54 mg/dL (40-60); Potassium 4.2 mmol/L (3.5-5.1); Sodium 140 mmol/L (136-145); Triglyceride 100 mg/dL (<150)
== END 2023-04-28 03:45 | disposition home or self-care (01) ==
LOC: LOS 03:44
PROVIDERS: PCP Nurse Practitioner Family; Visit Provider Nurse Practitioner Family
DX: E78.5 Hyperlipidemia, unspecified (principal); I10 Essential (primary) hypertension
CPT/HCPCS: 36415; 80048; 80061

== ENCOUNTER 2023-09-14 20:24 | Outpatient (REF) | payer BC, SELFPAY ==
--- NOTE | 2023-09-14 14:00 | PAPFT_PTH ---
PATIENT: Shayla Dow LOC: [facility] U#:[id number] AGE/SX: 62/F ROOM: RE09/14/[address]: MARTINE Guzman : 1960 BED: DIS: 09/14/2023 SPEC #: [id number] RECD: 09/15/23 12:42 STATUS: COMFORT RELaney #: [id number] JO-ANN: 09/14/23 14:[address]: Erlinda Sears DEPT: [facility] Cytology RECD BY: Shara Proctor Tissues: 1 - CX/ENDOCX FOR PAP SMEARS Procedures: PAP THIN PREP/UVM Screening HPV DNA PROBE Comments: [id number]
== END 2023-09-14 20:25 | disposition home or self-care (01) ==
LOC: LBN 20:24
PROVIDERS: PCP Nurse Practitioner Family; Visit Provider Nurse Practitioner Family
DX: I10 Essential (primary) hypertension (principal); Z00.00 Encounter for general adult medical examination without abnormal findings; G47.33 Obstructive sleep apnea (adult) (pediatric); G47.00 Insomnia, unspecified; F32.9 Major depressive disorder, single episode, unspecified; J45.909 Unspecified asthma, uncomplicated; Z71.89 Other specified counseling; Z68.41 Body mass index [BMI] 40.0-44.9, adult
CPT/HCPCS: 88142; 87624

== ENCOUNTER 2024-06-15 04:31 | Outpatient (CLI) | payer BC, SELFPAY ==
[2024-06-15 13:04] LABS: Hemoglobin A1C 5.5 % (<5.7)
[2024-06-15 13:36] LABS: ALT 24 U/L (14-59); AST 16 U/L (15-37); Albumin 3.6 g/dL (3.4-5.0); Alkaline Phosphatase 113 U/L (46-116); Anion Gap 8.8 mmol/L (3-11); BUN 14 mg/dL (7-18); Bilirubin, Total 0.4 mg/dL (0.2-1.0); CO2 29.2 mmol/L (21.0-32.0); Calcium 9.2 mg/dL (8.5-10.1); Chloride 105 mmol/L (98-107); Glucose 99 mg/dL (74-106); Potassium 3.4 mmol/L (3.5-5.1); Sodium 143 mmol/L (136-145); Total Protein 7.5 g/dL (6.4-8.2); Vitamin D 25 Total 40 ng/mL (30-100)
[2024-06-16 09:40] LABS: HBs Antibody, Quant <3.1 mIU/mL (See Note); Hep B Surface Ab Negative (See Note); Hepatitis B Core Antibody Negative (Negative); Hepatitis B Surface Antigen Negative (Negative)
[2024-06-16 09:53] LABS: HIV-1/2 Ag & Ab Screen Negative (Negative)
[2024-06-16 09:59] LABS: Hepatitis C Ab w Rflx HCV PCR Negative (Negative)
== END 2024-06-15 04:32 | disposition home or self-care (01) ==
LOC: LOS 04:31
PROVIDERS: PCP Nurse Practitioner Family; Visit Provider Nurse Practitioner Family
DX: Z11.59 Encounter for screening for other viral diseases (principal); Z00.00 Encounter for general adult medical examination without abnormal findings; Z11.4 Encounter for screening for human immunodeficiency virus [HIV]; I10 Essential (primary) hypertension; E55.9 Vitamin D deficiency, unspecified; G47.33 Obstructive sleep apnea (adult) (pediatric); E66.01 Morbid (severe) obesity due to excess calories; Z68.41 Body mass index [BMI] 40.0-44.9, adult
CPT/HCPCS: 36415; 80053; 82306; 86704; 86706; 86803; 87340; 87389; 83036

== ENCOUNTER 2024-08-22 06:40 | Day surgery (SDC) | payer BC, SELFPAY ==
--- NOTE | 2024-08-21 14:04 | PDOC.DSDIS_ITS ---
Date of service: 08/22/24 Discharge Plan Disposition Patient Disposition: Home Condition: Good Discharge Details Reason For Visit: screening colonoscopy Attending Provider: Chacorta Mendez Primary Care Provider: Erlinda Sears Home Meds and New Rx's Prescriptions: Continued sodium chloride [Berthold Nasal] 0.65 % aerosol,spray 1 spray intranasal ONCE aspirin [Annelise Low Dose Aspirin] 81 mg tablet,delayed release (DR/EC) 40.5 mg PO .QOD Patient Comments: takes half a baby asprin every other day fluticasone propionate [Allergy Relief (fluticasone)] 50 mcg/actuation spray,suspension 1 spray intranasal BID PRN (Reason: allergy symptoms) Rx Instructions: administer into each nostril albuterol sulfate 90 mcg/actuation HFA aerosol inhaler 2 puff inhalation Q6H PRN (Reason: shortness of breath or wheezing) Qty: 8.5 3RF estradiol 0.01 % (0.1 mg/gram) cream 0.5 g vaginal .Twice a week Qty: 42.5 4RF dextroamphetamine-amphetamine [Adderall] 10 mg tablet 10 mg PO DAILY MDD 1 tab Qty: 28 0RF bupropion HCl 200 mg tablet sustained-release 12 hr 300 mg PO DAILY Qty: 90 3RF lorazepam 0.5 mg tablet 0.75 mg PO QHS MDD 1.5 tabs PRN (Reason: insomnia) Qty: 45 2RF Rx Instructions: Take 1.5 tablets once a day as needed for insomnia hydrochlorothiazide 25 mg tablet 25 mg PO DAILY Qty: 90 3RF Discontinued bisacodyl [Dulcolax (bisacodyl)] 5 mg tablet,delayed release (DR/EC) 5 mg PO ONCE Qty: 4 0RF Rx Instructions: Take per colonoscopy instructions provided by ordering providers office polyethylene glycol 3350 17 gram/dose powder 17 g PO ONCE Qty: 238 0RF Rx Instructions: Take per colonoscopy instructions provided by ordering providers office Discharge Instructions Additional Instructions: Shayla, was nice meeting you today, I hope you feel well after the procedure. Your prep was outstanding, could see everything fine. Everything looks totally normal. I do not see any signs of inflammation irritation polyps, or anything else. As we discussed beforehand, based on your family history, I do recommend a 5-year screening interval for your colonoscopies. If you need anything or have any questions, please do not hesitate to ask. 1. If tolerated, consume a soft, low fiber diet for 1-2 days. [address] Do not drive, drink alcohol, operate machinery, make critical decisions, or do activities that require coordination or balance for 24 hours. 3. Because air was put into your colon during the procedure, expelling air from your rectum (passing gas or farting) is normal. 4. You may not have a bowel movement for 1-3 days because of the colonoscopy prep. This is normal. 5. Go directly to the emergency room if you notice any of the following: Develop chills (warm to touch), or if you have a thermometer and your temperature is above 101 Difficulty breathing or difficultly swallowing Persistent vomiting Severe abdominal pain, other than gas cramps Severe chest pain Black, tarry stools Any bleeding ? exceeding one tablespoon 6. Call your physician if the site where your intravenous was started becomes red, swollen, painful, and warm to touch. 7. Your physician has reviewed your pre-procedure medications. Please continue to take those medications as previously ordered. You will be given specific information/education regarding any changes to your medications before leaving. Stand Alone Forms: Anesthesia Discharge Inst., Colonoscopy Post Instructions, Arcelia Rosales (DSU) Activity:: Activity as Tolerated Diet:: As Tolerated Discharge Orders Discharge Orders: Discharge Order (Routine); Ordered 08/21/24 Ordered By: Chacorta Mendez DS: Diagnosis Discharge Diagnosis (1) Encounter for screening colonoscopy: Status: Acute Asessment and Plan: Negative screening colonoscopy; based on family history, 5-year interval
--- NOTE | 2024-08-21 14:06 | W.PREOPHP ---
Assessment and Plan Assessment and plan (1) Encounter for screening colonoscopy: Status: Acute Assessment and plan: we reviewed the plan for a screening colonoscopy as well as the risks and benefits of the procedure. Shayla is able to provide informed consent, and we can proceed with colonoscopy as planned. History of Present Illness History of Present Illness Chief Complaint: screening colonoscopy Narrative: 63 y/o female with history of asthma, HLD, HTN, SALO, IBS and depression presents for colonoscopy screening pre-op. Her last screening was in 2019, which was remarkable for tubular adenoma. She reports a history of colon cancer in her maternal grandmother. She also thinks that her brother carried a diagnosis of ulcerative colitis. She denies any changes in bowel habits including bloody or black tarry stools, abdominal pain, diarrhea or constipation. She denies constitutional symptoms. She denies chest pain, palpitations, dyspnea or dyspnea with exertion. She denies prior history or family history of adverse reactions or complications with anesthesia. The patient denies any history of stroke, OR, seizures, bleeding or clotting disorders. Of note she did have a DVT in her R LE in 2012. She reports having metal implanted in her left knee, right tibia and left wrist. PFS All Active Problems Encounter for screening colonoscopy (Acute) Genitourinary syndrome of menopause (Chronic) Class 3 severe obesity with body mass index (BMI) of 40.0 to 44.9 in adult (Chronic) Asthma (Chronic) Post-traumatic osteoarthritis of right knee (Chronic) Osteoarthritis of carpometacarpal joint of left thumb (Chronic) Digital mucous cyst of finger of left hand (Chronic) Allergic rhinitis (Chronic) Hyperlipidemia (Chronic) Insomnia (Chronic) IBS (irritable bowel syndrome) (Chronic) Major depressive disorder (Chronic) Obstructive sleep apnea (Chronic) Essential hypertension (Chronic) Vitamin D deficiency (Chronic) Medical History Tubular adenoma of colon On 2018 colonoscopy Basal cell carcinoma (BCC) of medial canthus of left eye Deep vein thrombosis (DVT) of popliteal vein of right lower extremity 2016 s/p coumadin x 6mo Surgical History Hx of total knee replacement (L) S/P LASIK surgery of both eyes S/P nasal septoplasty S/P cholecystectomy S/P ORIF (open reduction internal fixation) fracture Left wrist t plates in wrists and RLE- with sandip in situ Status post left knee replacement (~01/2013) History of bladder suspension procedure (~2011) Family History (Updated 07/22/24 @ 15:25 by Yana Feldman RN) Mother , 53 Leukemia Father , 64 Melanoma Stroke Hypertension Sister Asthma Diabetes Hypertension Sister Diabetes Hypertension Stroke Sister Diabetes Sister Asthma Hyperlipidemia Brother , 65 Diabetes Emphysema of lung Heart disease Hyperlipidemia Brother No problems noted. Brother Diabetes Melanoma Colitis Brother Diabetes Brother , 54 Prostate cancer Daughter Depression Asthma Son , 29 Substance use disorder Paternal Grandfather , 60's Liver cancer Paternal Grandmother , 95 Stroke Maternal Grandfather , 40s No problems noted. Maternal Grandmother , 63 Colon cancer Social History Smoking/Tobacco Use Status: Never Tobacco: How many years used: 0 Second Hand Exposure: Yes Smoking risk assessment performed?: Yes Alcohol Intake: current Alcohol Intake frequency: holidays/special occasions only Alcohol type: wine Drug use: Never Substance use type: does not use Caregiver/Support person: No Household members: none Housing: house Communication Needs: Corrective Lenses Do you need help understanding health information?: Never Pets and animals: Yes Pets and animals: dog(s) Sexually active: No Do you think of yourself as: straight/heterosexual Current gender identity: female What is your relationship status?: How often do you talk on the phone with friends or family?: three or more times per week How often do you get together with friends or relatives?: once per week How often do you attend faith or oriental orthodox services?: 1-3 times per year Do you belong to any clubs or organized social groups?: no Panel score (0-1 are the most socially isolated patients): 1 What type of physical activity do you participate in: walking Duration: 30-45 minutes/day Frequency: daily Jessica/Catholic: Restorationist Special jessica needs: No Seatbelt use: always Helmet use: Yes Helmet use: always 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 Do you feel safe at home: Yes Do you feel safe in your relationship?: Yes Victim of physical abuse: No Victim of emotional abuse: No Victim of sexual abuse: No Would you like helpful sources: No Female Reproductive History Menstrual Menopause type: natural History History 2 Para 2 Hx # Term Pregnancies Multiple births Hx # Pregnancies Ectopic pregnancies AB induced Hx Number of Living Children 2 AB spontaneous Meds Allergies and Home Medications Allergies Allergy/AdvReac Type Severity Reaction Status Date / Time Sulfa (Sulfonamide Allergy Mild Hives Verified 08/22/24 07:00 Antibiotics) prednisone Allergy Unknown Intolerance Verified 08/22/24 07:00 sodium lauryl sulfate AdvReac Skin Rash Verified 08/22/24 07:00 Home Medications ?Medication ?Instructions ?Recorded ?Confirmed ?Type sodium chloride 0.65 % nasal spray 1 spray intranasal ONCE 05/10/20 08/18/24 History aerosol (Alleghany Nasal) aspirin 81 mg tablet,delayed 40.5 mg PO .QOD 09/06/21 08/18/24 History release (Annelise Low Dose Aspirin) fluticasone propionate 50 1 spray intranasal BID PRN allergy 09/06/21 08/22/24 History mcg/actuation nasal symptoms spray,suspension (Allergy Relief (fluticasone)) albuterol sulfate 90 mcg/actuation 2 puff inhalation Q6H PRN 09/08/22 08/22/24 Rx aerosol inhaler shortness of breath or wheezing #8.5 grams estradiol 0.01% (0.1 mg/gram) 0.5 g vaginal .Twice a week #42.5 12/25/22 08/18/24 Rx vaginal cream grams dextroamphetamine-amphetamine 10 10 mg PO DAILY #28 tabs 02/22/24 08/22/24 Rx mg tablet (Adderall) bupropion HCl 200 mg tablet,12 hr 300 mg (1.5 x 200 mg) PO DAILY #90 05/30/24 08/22/24 Rx sustained-release tabs hydrochlorothiazide 25 mg tablet 25 mg PO DAILY #90 tabs 07/21/24 08/22/24 Rx lorazepam 0.5 mg tablet 0.75 mg (1.5 x 0.5 mg) PO QHS PRN 07/21/24 08/22/24 Rx insomnia #45 tabs Exam Const General: cooperative, healthy appearing and not in acute distress Neck Neck: normal visual inspection, no lymphadenopathy and supple Resp Effort & Inspection: normal respiratory effort Auscultation: clear to auscultation bilaterally Cardio Jugular venous pressure: no JVD Rate: regular rate Rhythm: regular rhythm Heart Sounds: S1 normal and S2 normal GI Inspection: normal to inspection Palpation: soft, no guarding, no hernias and nontender Percussion: normal to percussion Auscultation: normal bowel sounds Neuro General: patient alert, patient awake and patient oriented x3 Psych Appearance: grossly normal
--- NOTE | 2024-08-21 14:08 | COLE_ITS ---
Date of service: 08/22/24 Time of Service: 08:38 Colonoscopy Report Date of procedure: 08/22/24 Pre-op diagnosis general: screening colonoscopy Post-op diagnosis procedure note: other (Negative screening colonoscopy) Procedure: colonoscopy Surgeon: Chacorta Mendez Anesthesia Type: General:No Airway Estimated blood loss (mL): 0 Pathology: none sent Complications: None Disposition: same day Indications: Shayla is a 63 year old woman with a history of adenomatous polyps who needs hre next screening colonoscopy Prep: Miralax/Dulcolax Procedure Start Time: 08:18 Procedure End Time: 08:30 Retraction Time: 7 Findings: Negative screening colonoscopy Procedure Description: After the induction of anesthesia, and with the patient in left lateral decubitus position, I began by performing an external anorectal exam.? Perineum and skin were normal, as was the anal verge.? There was no evidence of external hemorrhoids.? Next, I performed a digital rectal exam.? I did not appreciate any abnormal findings.? Next, I advanced a colonoscope into the rectal vault.? I performed retroflexion.?This appeared normal.? Using insufflation, I then advanced the colonoscope beyond the rectal folds and into the sigmoid colon before advancing towards the cecum.? The quality of the prep was outstanding.? The scope was noted to be in the cecum by identification of the ileocecal valve and appendiceal orifice.? I then began withdrawing the colonoscope using repeated irrigation as necessary for full evaluation of the colonic mucosa. ?Once the scope was withdrawn to the level of the rectum, great care was taken to examine portions of the rectal folds.? I saw no signs of tumors, polyps, or any other pathology. Finally, the scope was withdrawn and the patient was brought to the same-day surgery recovery unit as the anesthetic wore off. ?The findings and instructions were shared with the patient prior to discharge. [place] Bowel Prep [place] Bowel Prep Right Colon: 3 Left Colon: 3 Transverse Colon: 3 Total Score: 9
[2024-08-22 07:17] VITALS: BP 134/88; PULSE 93; RESP 20; TEMP 36.7; O2SAT 97
[2024-08-22] MEDS: Lactated Ringers 1,000 ML 80 ML IV (07:22)
--- NOTE | 2024-08-22 07:28 | ANES.PREOP_ITS ---
General Info Date of Service Date Performed: 08/22/24 Height: 5 ft 5 in Weight: 123.3 kg Body Mass Index (BMI): 45.2 Surgical Procedure: Operation Date: 08/22/24 08:20 Proposed Procedure Side Surgeon luly Mendez MD Meds Allergies and Home Medications Allergies Allergy/AdvReac Type Severity Reaction Status Date / Time Sulfa (Sulfonamide Allergy Mild Hives Verified 08/22/24 07:00 Antibiotics) prednisone Allergy Unknown Intolerance Verified 08/22/24 07:00 sodium lauryl sulfate AdvReac Skin Rash Verified 08/22/24 07:00 Home Medication ?Medication ?Instructions ?Recorded sodium chloride 0.65 % nasal spray 1 spray intranasal ONCE 05/10/20 aerosol ([place] Nasal) aspirin 81 mg tablet,delayed 40.5 mg PO .QOD 09/06/21 release (Annelise Low Dose Aspirin) fluticasone propionate 50 1 spray intranasal BID PRN allergy 09/06/21 mcg/actuation nasal symptoms spray,suspension (Allergy Relief (fluticasone)) albuterol sulfate 90 mcg/actuation 2 puff inhalation Q6H PRN 09/08/22 aerosol inhaler shortness of breath or wheezing #8.5 grams estradiol 0.01% (0.1 mg/gram) 0.5 g vaginal .Twice a week #42.5 12/25/22 vaginal cream grams dextroamphetamine-amphetamine 10 10 mg PO DAILY #28 tabs 02/22/24 mg tablet (Adderall) bupropion HCl 200 mg tablet,12 hr 300 mg (1.5 x 200 mg) PO DAILY #90 05/30/24 sustained-release tabs hydrochlorothiazide 25 mg tablet 25 mg PO DAILY #90 tabs 07/21/24 lorazepam 0.5 mg tablet 0.75 mg (1.5 x 0.5 mg) PO QHS PRN 07/21/24 insomnia #45 tabs Current Visit Medications: Current Medications Generic Name Dose Route Start Last Admin Trade Name Freq PRN Reason Stop Dose Admin Ringer's Solution 1,000 mls @ 80 mls/hr 08/22/24 06:00 08/22/24 07:22 IV 08/22/24 23:59 80 mls/hr INFUSION ALCON Administration IV Miscellaneous Supplies 1 each 08/22/24 06:00 Iv Access IV 08/22/24 23:59 DIRECTED ALCON Ondansetron HCl 4 mg 08/21/24 14:09 Ondansetron 4 Mg/2 Ml Vial IVP 09/20/24 14:08 Q4H PRN PRN Nausea / Vomiting Sodium Chloride 0 ml 08/22/24 06:00 Normal Saline Flush 10 Ml Syr IV 08/22/24 23:59 PRN PRN Sodium Chloride 0 ml 08/22/24 06:00 Normal Saline 10 Ml Vial IJ 08/22/24 23:59 DIRECTED PRN Sterile Water 0 ml 08/22/24 06:00 Water,Injection,Sterile 10 Ml Vial IJ 08/22/24 23:59 DIRECTED PRN PFSH Active Problems Active Problems: Problem Status Onset Code Encounter for screening colonoscopy Acute Z12.11 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 Class 3 severe obesity with body mass index (BMI) of 40.0 to 44.9 in adult Chronic E66.01, Z68.41 Asthma Chronic J45.909 Post-traumatic osteoarthritis of right knee Chronic M17.31 Osteoarthritis of carpometacarpal joint of left thumb Chronic M18.12 Digital mucous cyst of finger of left hand Chronic M67.442 Allergic rhinitis Chronic J30.9 Hyperlipidemia Chronic E78.5 Insomnia Chronic G47.00 IBS (irritable bowel syndrome) Chronic K58.9 Major depressive disorder Chronic F32.9 Obstructive sleep apnea Chronic G47.33 Essential hypertension Chronic I10 Vitamin D deficiency Chronic E55.9 Medical History Medical History Tubular adenoma of colon On 2018 colonoscopy Basal cell carcinoma (BCC) of medial canthus of left eye Deep vein thrombosis (DVT) of popliteal vein of right lower extremity 2016 s/p coumadin x 6mo Surgical History Surgical History Hx of total knee replacement (L) S/P LASIK surgery of both eyes S/P nasal septoplasty S/P cholecystectomy S/P ORIF (open reduction internal fixation) fracture Left wrist t plates in wrists and RLE- with sandip in situ Status post left knee replacement (~01/2013) History of bladder suspension procedure (~2011) Tobacco Smoking/Tobacco Use Status: Never Passive smoking exposure: Yes Second hand exposure: Yes Alcohol Alcohol Intake: current Alcohol intake frequency: holidays/special occasions only Alcohol type: wine Substance Use Substance use: Never Substance use type: does not use Prental History History 2 Para 2 Hx # Term Pregnancies Multiple births Hx # Pregnancies Ectopic pregnancies AB induced Hx Number of Living Children 2 AB spontaneous Vital Signs and Lab Results Vital Signs Most Recent Vital Signs in EMR: Most Recent Vital Signs Temp Pulse Resp BP Pulse Ox 36.7 C 93 H 20 134/88 97 08/22/24 07:17 08/22/24 07:17 08/22/24 07:17 08/22/24 07:17 08/22/24 07:17 Lab Results Blood Type / Crossmatch: No Data to Display Complete Blood Count: No Data to Display Complete Metabolic Panel: No Data to Display Liver Function Panel: 2 No Data to Display Coagulation Panel: No Data to Display Cardiac Panel: No Data to Display Arterial Blood Gas: No Data to Display Venous Blood Gas: No Data to Display Pancreas Panel: No Data to Display Thyroid Panel: No Data to Display Infectious Disease: No Data to Display Blood Cultures: No Data to Display Toxicology Panel: No Data to Display Anesthesia Assessment and Plan Anesthesia History Personal History: No History of Anesthesia Complications Family History: No Family History of Anesthesia Complications Exercise Tolerance Exercise Tolerance: Metabolic Equivalents<4 Pertinent Negatives Pertinent Negatives: No Symptoms of GERD, No Major Cardiovascular Symptoms or Complaints and No Major Pulmonary Symptoms or Complaints Cardiac & Pulmonary Exam Cardiac Exam: Normal S1/S2 Heart Sounds Pulmonary Exam: Clear Bilateral Breath Sounds Implantable Cardiac Device Does patient have a Pacemaker or an ICD?: No Airway Exam Known Difficult Airway: No Mallampati Class: 3 Mouth Opening: Normal (> 3cm) Thyromental Distance: Less than 3 cm Neck Range of Motion: Full ROM Neck Circumference: Thick Teeth Condition: Normal Dentition ASA Classification ASA Score: ASA 3 Emergency Case?: No NPO Status NPO Status: NPO Clears >2 hours, Solids >8 hours Anesthesia Plan Resuscitation Status: Full Code Anesthesia Technique: General Anesthesia Airway Planned: Natural Airway Monitors Used: Standard Monitors Preoperative Comments:: Hx of polyps, has CPAP, does not use
[2024-08-22 08:04] VITALS: BMI 45.2
[2024-08-22 08:36] VITALS: BP 97/86; PULSE 85; RESP 18; TEMP 36.4; O2SAT 95
--- NOTE | 2024-08-22 08:44 | W.ANESPOSTOP ---
Postoperative Evaluation Date, Time and Location Date Performed: 08/22/24 Time Performed: 08:44 Patient Location: Day Surgery Unit Vital Signs Most Recent Imported Vital Signs: Most Recent Vital Signs Temp Pulse Resp BP Pulse Ox 36.4 C L 85 18 97/86 L 95 08/22/24 08:36 08/22/24 08:36 08/22/24 08:36 08/22/24 08:36 08/22/24 08:36 Pain Score Most Recent Pain Score: Most Recent Pain Score Pain Level 0 08/22/24 08:36 Assessment Mental Status: Awake (Alert & Oriented to Patient Baseline) Airway and Respiratory Function: Patent airway with normal (patient baseline) respiratory exam Cardiovascular Function: Hemodynamically Stable Hydration Status: Adequately Hydrated Nausea & Vomiting: No Nausea or Vomiting Pain: Pt. Denies Any Pain Peripheral Nerve Block: Patient did not receive a nerve block
[2024-08-22 09:11] VITALS: BP 124/76; PULSE 76; RESP 18; TEMP 36.6; O2SAT 96
== END 2024-08-22 09:41 | disposition home or self-care (01) ==
LOC: SUR 06:41
PROVIDERS: PCP Nurse Practitioner Family; Visit Provider Surgery
PROC: 0DJD8ZZ Inspection of Lower Intestinal Tract, Via Natural or Artificial Opening Endoscopic (ICD-10-PCS; CPT 45378; principal; 2024-08-22 08:15)
DX: Z12.11 Encounter for screening for malignant neoplasm of colon (principal); Z86.0101 Personal history of adenomatous and serrated colon polyps
CPT/HCPCS: 45378; J2704

== ENCOUNTER 2024-10-31 21:58 | Outpatient (REF) | payer BC, SELFPAY ==
[2024-10-31 22:08] LABS: Glucose Negative (Negative)
[2024-10-31 22:22] LABS: C & S Indicated? No
== END 2024-10-31 21:59 | disposition home or self-care (01) ==
LOC: LBN 21:58
PROVIDERS: PCP Nurse Practitioner Family; Visit Provider Nurse Practitioner Family
DX: R30.0 Dysuria (principal)
CPT/HCPCS: 81003; 81015

== ENCOUNTER 2024-11-02 03:12 | Outpatient (CLI) | payer BC, SELFPAY ==
--- NOTE | 2024-11-02 07:15 | DI.RAD_ITS ---
Exam(s) XR HIP LT COMPLETE AP PELVIS EXAM: XR HIP LT COMPLETE AP PELVIS CLINICAL HISTORY: left hip pain M25.552. TECHNIQUE: 2D digital imaging was performed. Three views. COMPARISON: No exams were available for comparison FINDINGS: BONES: No acute fracture is present. No bony destructive lesion is seen. JOINTS: No dislocation present. SI joints and pubic symphysis are unremarkable. Hip joint spaces are maintained. There is acetabular spurring and spurring at the margin of the femoral heads, greater on the left. SOFT TISSUE: Normal. IMPRESSION: [id number] degenerative changes of the hips, left greater than right. DATA REPOSITORY: RADIATION DOSE DELIVERED:
== END 2024-11-02 03:32 ==
LOC: DI 03:12
PROVIDERS: PCP Nurse Practitioner Family; Visit Provider Nurse Practitioner Family
DX: M16.0 Bilateral primary osteoarthritis of hip (principal)
CPT/HCPCS: 73502

== ENCOUNTER 2024-11-18 15:08 | Outpatient (CLI) | payer BC, SELFPAY ==
--- NOTE | 2024-11-18 09:30 | DI.RAD_ITS ---
Exam(s) XR LUMBAR SPINE COMPLETE EXAM: XR LUMBAR SPINE COMPLETE CLINICAL HISTORY: low back pain,m54.50. TECHNIQUE: 2D digital imaging was performed of the lumbar spine. Five images were obtained. AP, lateral, right oblique, left oblique and L5-S1 spot views were obtained. COMPARISON: No exams were available for comparison FINDINGS: BONES: No fracture or destructive lesion. There are small endplate osteophytes seen at L2-L3. There are degenerative changes seen in the facets particularly at L4-5 and L5-S1. DISKS: There is mild disc space narrowing at L2-L3 and L4-L5. ALIGNMENT: There is a mild left convex scoliosis of the thoracolumbar spine. There is grade 1 spondylolisthesis of L4 on L5. There is unilateral left spondylolysis at L5. SOFT TISSUE: Surgical clips are seen in the right upper quadrant of the abdomen which can be seen with prior cholecystectomy. Atherosclerotic calcification is present. IMPRESSION: 1. [id number] degenerative changes in the lumbar spine. 2. Grade 1 spondylolisthesis of L4 on L5. 3. Mild left convex thoracolumbar scoliosis. DATA REPOSITORY: RADIATION DOSE DELIVERED:
== END 2024-11-18 15:28 ==
LOC: DI 15:09
PROVIDERS: PCP Nurse Practitioner Family; Visit Provider Nurse Practitioner Family
DX: M43.16 Spondylolisthesis, lumbar region (principal)
CPT/HCPCS: 72110

== ENCOUNTER 2025-01-30 13:21 | Outpatient (CLI) | payer BC, SELFPAY ==
--- NOTE | 2025-01-30 10:42 | DI.RAD_ITS ---
Exam(s) XR KNEE RT 1V XR STANDING ALIGNMENT EXAM: XR STANDING ALIGNMENT and XR knee RT 1 V CLINICAL HISTORY: TKR Planning. TECHNIQUE: 2D digital imaging was performed. Five images were obtained. COMPARISON: CR XR KNEE RT 3V AP,LAT,SEKOU from 02/09/2023 CR XR KNEE LT 3V AP,LAT,SEKOU from 02/09/2023 CR XR HIP LT COMPLETE AP PELVIS from 11/02/2024 CR XR KNEE RT 1V from 01/30/2025 FINDINGS: BONES: There is moderate joint space narrowing again seen of the left hip. In the right knee, tricompartment degenerative changes are present characterized by joint space narrowing and osteophytes. The findings are most marked in the medial femoral tibial joint. The patient has a prior left total knee arthroplasty which appears grossly unremarkable. There is an intramedullary sandip again seen in the right tibia and there is an old healed right fibular fracture. The ankles are well maintained.There is no significant leg length discrepancy. SOFT TISSUE: Normal. IMPRESSION: Marked osteoarthritis of the right knee. DATA REPOSITORY: RADIATION DOSE DELIVERED:
== END 2025-01-30 13:22 | disposition home or self-care (01) ==
LOC: DIORS 13:21
PROVIDERS: PCP Nurse Practitioner Family; Visit Provider Physician Assistant
DX: M17.11 Unilateral primary osteoarthritis, right knee (principal)
CPT/HCPCS: 73560; 77073

== ENCOUNTER 2025-03-23 16:26 | Outpatient (REF) | payer BC, SELFPAY ==
[2025-03-23 17:41] LABS: Anion Gap 9.6 mmol/L (3-11); BUN 14 mg/dL (9-23); CO2 28.4 mmol/L (20.0-31.0); Calcium 9.2 mg/dL (8.3-10.6); Chloride 101 mmol/L (98-107); Glucose 87 mg/dL (74-106); Potassium 3.3 mmol/L (3.5-5.1); Sodium 139 mmol/L (136-145)
[2025-03-23 17:45] LABS: HCT 43.9 % (36.0-46.0); HGB 14.3 g/dL (11.2-15.7); MCH 29.4 pg (27.0-33.0); MCHC 32.6 % (32.0-36.0); MCV 90 fL (80-95); MPV 9.8 fL (8.0-11.0); Platelet Count 454 10^3/uL (130-400); RBC 4.86 10^6/uL (3.93-5.22); RDW 12.0 % (11.7-14.6); RDW-SD 39.6 fL; WBC 8.33 10^3/uL (4.4-10.8)
== END 2025-03-23 16:27 | disposition home or self-care (01) ==
LOC: LBN 16:26
PROVIDERS: PCP Nurse Practitioner Family; Visit Provider Student in an Organized Health Care Education/Training Program
DX: M17.11 Unilateral primary osteoarthritis, right knee (principal); Z01.818 Encounter for other preprocedural examination
CPT/HCPCS: 80048; 85027

== ENCOUNTER 2025-04-05 08:04 | Day surgery (SDC) | payer BC, SELFPAY ==
[2025-04-05] VITALS (19 sets, daily range): BP systolic 118–153; BP diastolic 73–95; PULSE 64–93; RESP 8–20; TEMP 36–36.7; O2SAT 97–100; BMI 43.2
--- NOTE | 2025-04-05 07:27 | W.PM.DSUDISC ---
Date of service: 04/05/25 Discharge Plan Disposition Patient Disposition: Home Condition: Good Discharge Details Reason For Visit: R TKR Attending Provider: Bret Anguiano Primary Care Provider: Erlinda Sears [place] Meds and New Rx's Prescriptions: New acetaminophen 500 mg tablet 1,000 mg PO TID Qty: 90 3RF aspirin 81 mg tablet,delayed release (DR/EC) 81 mg PO BID Qty: 60 0RF celecoxib 200 mg capsule 200 mg PO BID Qty: 60 0RF dexamethasone 4 mg tablet 4 mg PO DAILY Qty: 2 0RF docusate sodium 100 mg capsule 100 mg PO BID PRNQty: 28 0RF pantoprazole 40 mg tablet,delayed release (DR/EC) 40 mg PO DAILY Qty: 14 0RF gabapentin 300 mg capsule 300 mg PO QHS Qty: 14 0RF oxycodone 5 mg tablet 5 mg PO Q4H PRNQty: 18 0RF Continued albuterol sulfate 90 mcg/actuation HFA aerosol inhaler 2 puff inhalation Q6H PRN (Reason: shortness of breath or wheezing) Qty: 8.5 3RF (DME) B[employer]heRite MDI Spacer Spacer See Rx Instructions .ROUTE .MEDSUPPLY Qty: 1 0RF Rx Instructions: As directed sodium chloride [[place] Nasal] 0.65 % aerosol,spray 1 spray intranasal ONCE estradiol 0.01 % (0.1 mg/gram) cream 0.5 g vaginal .Twice a week Qty: 42.5 4RF hydrochlorothiazide 25 mg tablet 25 mg PO DAILY Qty: 90 3RF dextroamphetamine-amphetamine [Adderall] 10 mg tablet 10 mg PO DAILY MDD 1 tab Qty: 28 0RF lorazepam 0.5 mg tablet 0.75 mg PO QHS PRN (Reason: insomnia) Qty: 45 2RF Patient Comments: pt reports taking this daily Rx Instructions: Take 1.5 tablets once a day as needed for insomnia fluticasone propionate [Allergy Relief (fluticasone)] 50 mcg/actuation spray,suspension 2 spray intranasal DAILY PRN (Reason: allergy symptoms) Qty: 16 3RF Rx Instructions: administer into each nostril bupropion HCl 200 mg tablet sustained-release 12 hr 300 mg PO DAILY Qty: 90 3RF Discontinued diphenhydramine-acetaminophen [Tylenol PM Extra Strength] 25-500 mg tablet 2 tab PO QHS PRN aspirin [Annelise Low Dose Aspirin] 81 mg tablet,delayed release (DR/EC) 40.5 mg PO .QOD Patient Comments: takes half a baby asprin every other day Discharge Instructions Additional Instructions: Total Knee Discharge Instructions Activity: The most important activity is to walk and to work on gentle motion (both flexion and extension). You should try to take short walks a few times a day. It is important that when resting you work on keeping the knee straight. Avoid putting a pillow behind the knee as this will encourage flexion. Work on range of motion exercises as provided by Physical Therapy. - Start outpatient physical therapy within 2 weeks. - You should wear the RAUDEL hose on both legs for 2 weeks. You may remove these at night. You may also use any compression sock in place of the RAUDEL hose. - Utilize [employer] to review exercises, see videos on exercises and obtain basic information pertaining to your surgery and your recovery. Dressing: Remove the Dani wrap by 2 days after your surgery and put on the RAUDEL stocking given to you from the hospital. Keep the surgical dressing (underneath the DANI wrap) in place for at least one week. After the first week it may be removed and replaced with light gauze and tape or nothing. The wound and dressing may get wet after 3 days but avoid soaking the dressing or otherwise it will need to be changed. Many people prefer covering the dressing with cling wrap (saran wrap) to minimize it from getting soaked. If it gets wet, just pat dry. If it starts to peel off then it will need to be changed. Medications: - You should take Tylenol and anti-inflammatory Celebrex as your primary pain control medications. If the Celebrex is too expensive or not covered, please call the office for another alternative (Advil/Ibuprofen or Naproxen/Aleve) - You have been prescribed a stronger pain medication Oxycodone for breakthrough pain, take as needed as prescribed. - You have also been prescribed a stomach acid reduction agent Pantoprozole to help reduce stomach acid and reflux. - You have been prescribed Gabapentin to take at night for restlessness and nerve pain. - You will be taking Aspirin 81mg twice a day for DVT prevention unless instructed otherwise. - You have also been prescribed Decadron to take to control post-operative nausea and pain. You will start this tomorrow. - If you have constipation you should take Colace or Miralax (both [id number]). It takes most people 3-4 days to have a bowel movement. Follow-up: 2 weeks If you have any acute concerns or questions, please do not hesitate to contact the office at [phone]. You may contact Dr. Anguiano with any questions after hours through the hospital at [phone] or on his cell phone at [phone]. Stand Alone Forms: Portal Information Referrals: Bret Anguiano MD [ [facility] STAFF PHYSICIAN, Orthopaedic Surgical] Equipment/Supplies: Walker Activity:: Activity as Tolerated Shower/Bathe:: 72 hours Diet:: As Tolerated Discharge Orders Discharge Orders: Discharge Order (Routine); Ordered 04/05/25 Ordered By: Christ Ortega DS: Diagnosis Discharge Diagnosis (1) Osteoarthritis of right knee: Status: Chronic
--- NOTE | 2025-04-05 08:27 | W.ANESPRE ---
General Info Date of Service Date Performed: 04/05/25 Height: 5 ft 5 in Weight: 117.934 kg Body Mass Index (BMI): 43.2 Surgical Procedure: Operation Date: 04/05/25 10:40 Proposed Procedure Side Surgeon p Knee Total Arthroplasty w/OrthAlign Right Bret Anguiano MD s Hardware Removal Right Bret Anguiano MD Meds Allergies and Home Medications Allergies Allergy/AdvReac Type Severity Reaction Status Date / Time diphenhydramine (From Advil Allergy Severe Skin Rash Verified 04/05/25 08:26 PM) ibuprofen (From Advil PM) Allergy Severe Skin Rash Verified 04/05/25 08:26 Sulfa (Sulfonamide Allergy Mild Hives Verified 04/05/25 08:26 Antibiotics) prednisone Allergy Unknown Intolerance Verified 04/05/25 08:26 sodium lauryl sulfate AdvReac Skin Rash Verified 04/05/25 08:26 Home Medication ?Medication ?Instructions ?Recorded sodium chloride 0.65 % nasal spray 1 spray intranasal ONCE 05/10/20 aerosol ([place] Nasal) estradiol 0.01% (0.1 mg/gram) 0.5 g vaginal .Twice a week #42.5 12/25/22 vaginal cream grams hydrochlorothiazide 25 mg tablet 25 mg PO DAILY #90 tabs 07/21/24 albuterol sulfate 90 mcg/actuation 2 puff inhalation Q6H PRN 09/14/24 aerosol inhaler shortness of breath or wheezing #8.5 grams inhalational spacing device #1 ea 09/14/24 (Breathe[employer]ite MDI Spacer) dextroamphetamine-amphetamine 10 10 mg PO DAILY #28 tabs 02/15/25 mg tablet (Adderall) lorazepam 0.5 mg tablet 0.75 mg (1.5 x 0.5 mg) PO QHS PRN 02/17/25 insomnia #45 tabs fluticasone propionate 50 2 spray intranasal DAILY PRN 02/27/25 mcg/actuation nasal allergy symptoms #16 grams spray,suspension (Allergy Relief (fluticasone)) bupropion HCl 200 mg tablet,12 hr 300 mg (1.5 x 200 mg) PO DAILY #90 03/31/25 sustained-release tabs acetaminophen 500 mg tablet 1,000 mg (2 x 500 mg) PO TID #90 04/05/25 tabs aspirin 81 mg tablet,delayed 81 mg PO BID #60 tabs 04/05/25 release celecoxib 200 mg capsule 200 mg PO BID #60 caps 04/05/25 dexamethasone 4 mg tablet 4 mg PO DAILY #2 tabs 04/05/25 docusate sodium 100 mg capsule 100 mg PO BID PRN #28 caps 04/05/25 gabapentin 300 mg capsule 300 mg PO QHS #14 caps 04/05/25 oxycodone 5 mg tablet 5 mg PO Q4H PRN #18 tabs 04/05/25 pantoprazole 40 mg tablet,delayed 40 mg PO DAILY #14 tabs 04/05/25 release Current Visit Medications: Current Medications Generic Name Dose Route Start Last Admin Trade Name Freq PRN Reason Stop Dose Admin Acetaminophen 1,000 mg 04/05/25 06:00 Acetaminophen 500 Mg Tab PO 04/05/25 23:59 PREOP ALCON Acetaminophen 1,000 mg 04/05/25 07:25 Acetaminophen 500 Mg Tab PO 05/05/25 07:24 TID PRN PRN Analgesia Celecoxib 400 mg 04/05/25 06:00 Celecoxib 200 Mg Cap PO 04/05/25 23:59 PREOP ALCON Docusate Sodium 100 mg 04/05/25 07:25 Docusate Sodium 100 Mg Cap PO 05/05/25 07:24 BID PRN PRN Constipation Gabapentin 300 mg 04/05/25 06:00 Gabapentin 300 Mg Cap PO 04/05/25 23:59 PREOP ALCON Ringer's Solution 1,000 mls @ 80 mls/hr 04/05/25 06:00 IV 04/05/25 23:59 INFUSION ALCON Cefazolin Sodium 3,000 mg/ 100 mls @ 200 mls/hr 04/05/25 06:00 Sodium Chloride IV 04/05/25 23:59 PREOP ALCON Tranexamic Acid/Sodium Chloride 1,000 mg in 100 mls @ 600 mls/hr 04/05/25 06:00 IVPB 04/05/25 23:59 PREOP ALCON Ondansetron HCl 4 mg 04/05/25 07:25 Ondansetron 4 Mg/2 Ml Vial IVP 05/05/25 07:24 Q6H PRN PRN Nausea Oxycodone HCl 0 mg 04/05/25 07:25 Oxycodone 5 Mg Tab PO 05/05/25 07:24 Q3H PRN PRN Pain Polyethylene Glycol 17 gm 04/05/25 07:25 Polyethylene Glycol 3350 17 Gm Packet PO 05/05/25 07:24 BID PRN PRN Constipation Sodium Chloride 0 ml 04/05/25 06:00 Normal Saline Flush 10 Ml Syr IV 04/05/25 23:59 PRN PRN Sodium Chloride 0 ml 04/05/25 06:00 Normal Saline 10 Ml Vial IJ 04/05/25 23:59 DIRECTED PRN Sterile Water 0 ml 04/05/25 06:00 Water,Injection,Sterile 10 Ml Vial IJ 04/05/25 23:59 DIRECTED PRN PFSH Active Problems Active Problems: Problem Status Onset Code Obstructive sleep apnea Chronic G47.33 Essential hypertension Chronic I10 Major depressive disorder Chronic F32.9 IBS (irritable bowel syndrome) Chronic K58.9 Hyperlipidemia Chronic E78.5 Asthma Chronic J45.909 Class 3 severe obesity with body mass index (BMI) of 40.0 to 44.9 in adult Chronic E66.01, Z68.41 Osteoarthritis of right knee Chronic M17.11 Osteoarthritis of carpometacarpal joint of left thumb Chronic M18.12 Osteoarthritis of both hips Chronic M16.0 Digital mucous cyst of finger of left hand Chronic M67.442 Insomnia Chronic G47.00 Vitamin D deficiency Chronic E55.9 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 Allergic rhinitis Chronic J30.9 Medical History Medical History Tubular adenoma of colon On 2018 colonoscopy Basal cell carcinoma (BCC) of medial canthus of left eye Deep vein thrombosis (DVT) of popliteal vein of right lower extremity 2016 s/p coumadin x 6mo Surgical History Surgical History History of colonoscopy (~08/2024) S/P LASIK surgery of both eyes S/P nasal septoplasty S/P cholecystectomy S/P ORIF (open reduction internal fixation) fracture Left wrist t plates in wrists and RLE- with sandip in situ Status post left knee replacement (~01/2013) History of bladder suspension procedure (~2011) Tobacco Smoking/Tobacco Use Status: Never Passive smoking exposure: Yes Second hand exposure: Yes Alcohol Alcohol Intake: current Alcohol intake frequency: holidays/special occasions only Alcohol type: wine Substance Use Substance use: Never Substance use type: does not use Prental History History 2 Para 2 Hx # Term Pregnancies Multiple births Hx # Pregnancies Ectopic pregnancies AB induced Hx Number of Living Children 2 AB spontaneous Vital Signs and Lab Results Vital Signs Most Recent Vital Signs in EMR: Temp Pulse Resp BP Pulse Ox 36.7 C 83 20 148/95 H 100 04/05/25 08:39 04/05/25 08:39 04/05/25 08:39 04/05/25 08:39 04/05/25 08:39 Lab Results Complete Blood Count: WBC, (4.4-10.8) 8.33 10^3/uL 03/23/25, 14:05 RBC, (3.93-5.22) 4.86 10^6/uL 03/23/25, 14:05 Hgb, (11.2-15.7) 14.3 g/dL 03/23/25, 14:05 Hct, (36.0-46.0) 43.9 % 03/23/25, 14:05 Plt Count, (130-400) 454 10^3/uL H 03/23/25, 14:05 Complete Metabolic Panel: Sodium, (136-145) 139 mmol/L 03/23/25, 14:05 Potassium, (3.5-5.1) 3.3 mmol/L L 03/23/25, 14:05 Chloride, (98-107) 101 mmol/L 03/23/25, 14:05 Carbon Dioxide, (20.0-31.0) 28.4 mmol/L 03/23/25, 14:05 BUN, (9-23) 14 mg/dL 03/23/25, 14:05 Creatinine, (0.55-1.02) 0.77 mg/dL 03/23/25, 14:05 Est GFR (CKD-EPI 2020), (mL/min/1.73m2) 75.61 03/23/25, 14:05 Calcium, (8.3-10.6) 9.2 mg/dL 03/23/25, 14:05 Glucose, (74-106) 87 mg/dL 03/23/25, 14:05 Anesthesia Assessment and Plan Anesthesia History Personal History: No History of Anesthesia Complications Family History: No Family History of Anesthesia Complications Exercise Tolerance Exercise Tolerance: Metabolic Equivalents<4 Cardiac & Pulmonary Exam Cardiac Exam: Normal S1/S2 Heart Sounds Pulmonary Exam: Clear Bilateral Breath Sounds Implantable Cardiac Device Does patient have a Pacemaker or an ICD?: No Airway Exam Known Difficult Airway: No Mallampati Class: 3 Mouth Opening: Normal (> 3cm) Thyromental Distance: Less than 3 cm Neck Range of Motion: Full ROM Neck Circumference: Thick Teeth Condition: Normal Dentition ASA Classification ASA Score: ASA 3 Emergency Case?: No NPO Status NPO Status: NPO Clears >2 hours, Solids >8 hours Anesthesia Plan Resuscitation Status: Full Code Anesthesia Technique: Spinal Anesthesia Airway Planned: Natural Airway Pain Management: Surgeon and patient request nerve block Monitors Used: Standard Monitors Preoperative Comments:: 64 yo for TKA. Sig PMHx: HTN (HCTZ), SALO (no cpap), asthma (albuterol - rare use), depression, ADHD (adderall), DVT (2013). Never smoker, occ EtOH. Denies GERD. Approp NPO. ECG: sinus, ? LAE. ECHO: LVEF 68%. no sig valve issues. Previous Anes: - colo, prop, natural airway, no issues
[2025-04-05] MEDS: Lactated Ringers 1,000 ML 80 ML IV (09:05)
[2025-04-05] MEDS: Gabapentin 300 MG CAP PO (09:24)
[2025-04-05] MEDS: Celecoxib 200 MG CAP 400 MG PO (09:24)
[2025-04-05] MEDS: Acetaminophen 500 MG TAB 1000 MG PO (09:24)
--- NOTE | 2025-04-05 09:52 | W.ANESNERVE ---
Nerve Block Single Injection Procedure Date and Time Date Performed: 04/05/25 Procedure Start: 09:44 Location Where Procedure Performed Procedure Location: Day Surgery Unit Reason Performed: Postoperative Analgesia Requesting Provider: Bret Anguiano Timeout Performed Timeout Performed: Yes Monitoring Used ECG, Blood Pressure, SpO2 and ETCO2 Sterility Sterility: Hand Hygiene, Surgical Cap, Surgical Mask, Sterile Gloves, Sterile Drape/Sheet and Chlorhexidine Sedation Given During Procedure Sedation Given (Indicate Dose Given): Versed IV Dose:: 2 mg Patient Mental Status Patient Mental Status: Sedate with meaningful communication Nerve Block 1st Nerve Block: Laterality: Right Block Type: Adductor Canal Ultrasound Image Saved?: Yes Needle / Catheter Used: 100mm SonoPlex II Local Anesthetic Bolus (Indicate Dose Given): Bupivacaine 0.25% Dose:: 10 mL Additives (Indicate Dose Given): None Ultrasound: Sterile probe cover and gel used Nerve Stimulator: Not Used Paresthesia: None Procedure Tolerated: No Complications Procedure Outcome: Successful Performed By: Reggie Malik
[2025-04-05] MEDS: ceFAZolin 3,000 MG in Normal Saline 100 ML 200 MG IV (10:40)
[2025-04-05] MEDS: TRANEXAMIC ACID/SOD. CHL. 1,000 MG/100 ML BAG 600 MG IVPB (10:53)
[2025-04-05] MEDS: ROPIvacaine/EPI/CLONIDINE/KET 50 ML SYRINGE IJ (11:17)
--- NOTE | 2025-04-05 12:11 | ROE_ITS ---
Operative Note Operative Note PRE-OP DIAGNOSIS: Right Knee Osteoarthritis POST-OP DIAGNOSIS: same PROCEDURE: Right Total Knee Replacement SURGEON: Bret Anguiano [employer]EARCH TECHNICIAN: Carroll Ortega ANESTHESIA TYPE: Spinal Refer to Anesthesia Record ESTIMATED BLOOD LOSS: 150 PATHOLOGY: none sent TOURNIQUET TIME: 0 COMPLICATIONS: None Patient was transported to: PACU Patient's condition: stable Implants: 1. Depuy Attune Cementless Cruciate Retaining Femoral Component, Size 5 2. Depuy Attune Cementless Fixed Bearing Tibial Component, Size 4 3. Depuy Attune 5x12mm CR/FB Poly 4. Depuy Attune Patellar Component, Size 35mm Indications: I have seen Shayla in clinic for symptoms of knee arthritis, confirmed with radiographic findings. She has exhausted nonoperative methods and was having significant limitations in daily function and desired better function and less pain. I discussed the technical details of a knee replacement. I explained the risks of the procedure to include, but not limited to, bleeding, infection, pain, stiffness, fracture, damage to nerves and vessels, damage to muscles and tendons, loosening, need for repeat procedure, blood clot and cardiopulmonary demise. Despite these risks, Shayla elected to proceed. Findings: There was significant signs of arthritis throughout the knee involving all 3 compartments. Procedure Description: Shayla was greeted in the preoperative holding area where the correct side was identified and marked. The consent was reviewed with the patient and signed. The history and physical was updated. All questions were answered. Preoperative medications were administered: Acetaminophen 1000mg, Celebrex 400mg, and Gabapentin 300mg. An adductor canal block was then administered by the anesthesia team in the DSU. Shayla was taken back to the operating room. A spinal anesthestic was then administered. The patient was placed into the supine position on the operating room table. Posts were placed for positioning during the procedure. All bony prominences were well padded. Prophylactic antibiotics in the form of Cefazolin were administered. 1g of Tranxemic Acid was given intravenously within 30 minutes of incision. The right leg was then prepped with Chloraprep and draped in a standard fashion with impervious stockinette. A second prep with Chloraprep was performed prior to application of Iodine impregnated skin protection. A timeout to confirm correct identity, side and site, procedure, allergies, anesthesia, and medical concerns was performed. With the knee in some flexion, a midline incision was made overlying the knee. Full thickness skin flaps were raised once the extensor mechanism was encountered. These were raised medially and laterally. Any bleeding was controlled with electrocautery. Once the extensor mechanism was fully exposed, a medial parapatellar arthrotomy was performed in a flexed position. All bleeding from the arthrotomy and the geniculate arteries was coagulated. A medial subperiosteal peel was performed with electrocautery to the midcoronal plane. Due to the significant varus deformity the entire medial tibial plateau was exposed. The fat pad was removed while keeping the patellar tendon protected. The anterior distal femur synovium was removed for later visualization. The ACL and PCL were resected and the anterior horn of the lateral meniscus was transected. The knee was then flexed with the patella everted. Large osteophytes from the tibia were removed. Large osteophytes from the femur were removed. Using a step drill, and based on preoperative templating, the femoral canal was entered. This was done with a step drill without any difficulty. The intramedullary distal femoral cut guide was inserted, set to a 4 degree valgus cut and 9mm cut thickness. The distal femoral cut guide was then held in position and pinned. With the soft tissues protected, the distal cut was performed. This was passed over a few times to ensure a planar cut. I then turned attention to the tibia. The extramedullary guide was placed onto the leg. The distal aspect was slid medial to adjust for position of center of ankle and stay in line with shaft of the tibia. Approximately 5 degrees of posterior slope was kept in the proximal cutting guide. The center of the guide was aligned with the PCL. The stylus was used to assess cut thickness. The medial side, most involved side, was set for a 4mm cut. This was then held in position and pinned into place with 2 additional pins and a cross pin for stability. The medial and lateral collateral ligaments were protected and the cut was performed. With this completed, it was assessed and noted to be of appropriate dimensions. The guide was removed. A spacer block was inserted and the knee was brought into extension. The 10mm spacer block provided full extension, without hyperextension and with stability of both the medial and lateral collateral ligaments was assessed. The pins from the femur and the tibia were then removed. The distal femur was then sized. The anterior stylus was placed onto the lateral ridge of the anterior femur. This indicated a size 5 femur. The external rotation of the guide was adjusted to 3 degrees to match the epicondylar axis, perpendicular to Hong?s line. The 4-in-1 cutting guide was the placed. The posterior medial femur cut was evaluated and appeared of good thickness. The spacer block was inserted underneath the cutting guide and stability was confirmed in 90 degrees of flexion. An ryan wing was used to confirm appropriate position of the anterior cut to avoid notching. This cutting guide was ensured to be flush on the cut surface and then pinned into place with headed pins. While protecting the soft tissues, quad tendon, and collateral ligaments, the anterior and posterior cuts were performed with a saw. The central two pins were removed and the posterior and anterior chamfers were cut next. The notch-cutting guide was placed. This was pinned to lateralize the femoral component as much as possible while keeping it flush on the cut surface. This was then pinned into position. A reciprocating saw was used to make the notch cut. A rasp smoothed the cut surfaces. The medial and lateral menisci were removed. A trial femoral component was then inserted, impacted down to the cut surfaces, and the lug holes were drilled. A provisional trial tibial component was placed and the knee was brought through range of motion. The polyethylene was trialed until there was good flexion and extension with excellent stability to the medial and lateral collaterals. The patella was tracking without thumbs. A size 12mm polyethylene component provided the best range of motion and stability with less than 2mm gapping with medial and lateral stress and full e xtension without significant hyperextension. The tibial cut surface was fully exposed. The tibia was then sized as a 4. The tibia had been previously marked during trialing to correspond to the center of the tibial component to help with rotation. The trial was aligned to this carroll, approximately rotated to the medial 1/3rd of the tibial tubercle. The trial was pinned into place. The tibia was prepared with a reamer and a keel punch and lug holes. The knee was then brought into extension and the patella was measured as 25mm. Using the patellar clamp and cut guide, this was resected to a flat surface with at least 13mm of thickness remaining. The size 35mm patella fit the best. This was oriented and then clamped into position. The lugs were drilled. The trial components were removed. The final components were opened on the back table. The periosteal and capsular tissues, especially posteriorly, around the knee were then systematically injected with a periarticular cocktail consisting of 246mg of Ropivacaine, 0.5mg of Epinephrine, 0.08mg of Clonidine, and 30mg of Ketorolac, diluted to 100cc. On the back table, with the implants opened. The cement was mixed. One batch of high viscosity cement was prepared with vacuum assistance. After the cement was ready a small amount was placed on the cut surface of the patella and the patellar button was clamped into position and held. The cementless knee components were placed. Starting with the tibial component, the tibia was subluxed anteriorly and the lug holes of the component were lined up. The tibia was then impacted with an impactor and mallet until the tibial component was in contact with the tibia. Then, the femoral component was inserted. The lug holes were aligned and the component was impacted into position. The final polyethylene component was inserted. The knee was irrigated with Surgiphor Betadine solution. This was allowed to sit in the knee for 3 minutes and then it was irrigated out with saline. The patella was tracking with a no-thumbs technique. A complete synovectomy was performed around the periphery of the patella. The capsule was then reapproximated with a No. 1 Vicryl at multiple locations. The capsule was finally closed with a No. 2 Stratafix, barbed suture. Deep tissues were then reapproximated with 0 Vicryl and 2-0 Vicryl. The skin was closed with a running 3-0 Monocryl in a subcuticular fashion. This was reinforced with skin glue. A Mepilex silver dressing was applied along with a [id number] FRANKY wrap. A CryoCuff was applied. Shayla was transferred to the hospital bed without difficulty an suffering no apparent complication. Shayla has a good prognosis. Physical therapy will start today and without restrictions, weight-bearing as tolerated. Aspirin 81mg BID will be used for DVT prophylaxis. Date of Procedure: 04/05/25
--- NOTE | 2025-04-05 13:48 | W.ANESPOSTOP ---
Postoperative Evaluation Date, Time and Location Date Performed: 04/05/25 Time Performed: 13:48 Patient Location: Day Surgery Unit Vital Signs Most Recent Imported Vital Signs: Most Recent Vital Signs Temp Pulse Resp BP Pulse Ox 36.3 C L 70 11 L 138/89 99 04/05/25 13:14 04/05/25 13:14 04/05/25 13:14 04/05/25 13:14 04/05/25 13:14 Pain Score Most Recent Pain Score: Most Recent Pain Score Pain Level 3 04/05/25 13:14 Assessment Mental Status: Awake (Alert & Oriented to Patient Baseline) Airway and Respiratory Function: Patent airway with normal (patient baseline) respiratory exam Cardiovascular Function: Hemodynamically Stable Hydration Status: Adequately Hydrated Nausea & Vomiting: No Nausea or Vomiting Pain: Pain is tolerable per patient Peripheral Nerve Block: Regional nerve block not resolved at time of post operative discharge
[2025-04-05] MEDS: oxyCODONE 5 MG TAB PO (14:26)
[2025-04-05] MEDS: Tranexamic Acid 650 MG TAB 1300 MG PO (14:26)
--- NOTE | 2025-04-05 14:58 | IN_ITS ---
PT Notes Visit Reasons: R TKR Physical Therapy Day Surgery Initial Evaluation Date: 04/05/25 Certification Period: From 04/05/25 through 04/06/25 I certify the need for these services as being medically necessary and skilled as furnished under this plan of treatment while under my care. Please sign and return within 14 days if you agree wit the above plan of care. Thank you for this referral! Referring Physician: Date: Referring Doctor: IZABELLA Patel PT Orders: PT CONSULT: s/p right TKA Precautions: fall, standard Patient Profile/Admitting Diagnosis: Patient is a 64 year old female with right knee OA, referred for PT evaluation following right TKA, post op day #0. PMHX: All Active Problems Obstructive sleep apnea (Chronic) Essential hypertension (Chronic) Major depressive disorder (Chronic) IBS (irritable bowel syndrome) (Chronic) Hyperlipidemia (Chronic) Asthma (Chronic) Class 3 severe obesity with body mass index (BMI) of 40.0 to 44.9 in adult (Chronic) Osteoarthritis of right knee (Chronic) Osteoarthritis of carpometacarpal joint of left thumb (Chronic) Osteoarthritis of both hips (Chronic) Digital mucous cyst of finger of left hand (Chronic) Insomnia (Chronic) Vitamin D deficiency (Chronic) Genitourinary syndrome of menopause (Chronic) Allergic rhinitis (Chronic) Medical History Tubular adenoma of colon On 2018 colonoscopy Basal cell carcinoma (BCC) of medial canthus of left eye Deep vein thrombosis (DVT) of popliteal vein of right lower extremity 2016 s/p coumadin x 6mo Surgical History History of colonoscopy (~08/2024) S/P LASIK surgery of both eyes S/P nasal septoplasty S/P cholecystectomy S/P ORIF (open reduction internal fixation) fracture Left wrist t plates in wrists and RLE- with sandip in situ Status post left knee replacement (~01/2013) History of bladder suspension procedure (~2011) Social History/Home Situation: Lives alone in a private home, no PRICE. Has flight of stairs to her bedroom, but plans to remain on first floor during acute post- op phase. Her sister is present and supportive at time of consult, and plans to stay with Shayla initially. Equipment Owned/DME: has a borrowed FWW Subjective: Shayla reports apprehension about getting up. She's agreeable to PT consult. Objective: General Observation: Resting in bed, IV in RUE, ice to right knee. No additional lines. Mental Status: A&Ox3 Pain: feels weird. Pain well managed. ROM: Right Upper Extremity: WFL Left Upper Extremity: WFL Right Lower Extremity: Right knee allows 0-70* flexion actively. Left Lower Extremity: WFL Strength: Right Upper Extremity: WFL Left Upper Extremity: WFL Right Lower Extremity: Able to pump ankle and wiggle toes. Able to demonstrate SLR through small range. Left Lower Extremity: WFL Sensation: intact distally Bed Mobility/Transfers: Supine to sit : supervision Sit to stand : SBA Stand to sit SBA Bed to chair : CGA with FWW Gait: Ambulates 50' with FWW, CGA. Demonstrates slow gait, and reports sensation of dizziness/lightheadedness. Assisted back to chair with CGA, and elevated feet. BP is 126/79, HR 93. Nursing alerted. Returned for second session, at which point she is able to ambulate 75'x2 with FWW, CGA-SBA. Cues for stride length. Stairs: manages therapeutic stairs 6x2, 4x3 with bilat rails, step to pattern. Cues for technique. Balance: Static Sitting: normal Dynamic Sitting: normal Static Standing: fair Dynamic Standing: fair Special Tests: Mobility Limitations Standardized Measure [facility] AM-PAC 6 clicks Basic Mobility Inpatient Short Form: Raw Score: 23 CMS Score: 11% impairment Informed Consent/Education: Patient instructed in purpose of PT consult. Packet containing [] exercise protocol has been given to patient. Education and training on initial set of exercises that can be done at home have been completed with patient. Treatment: Initial Evaluation (92501) Therapeutic Exercises (68545e2): Instructed in HEP for self-management in acute post-op phase: Ankle Pumps 10x, 3x/day Quad sets 10x, 3x/day Glute sets 10x, 3x/day SLR 10x, 3x/day heel slide 10x, 3x/day extension hang 3 minutes, 3x/day Instructed in stair management and transfer technique. FWW fitted to patient height. Assessment: Patient presents with clinical signs and symptoms consistent with current/admitting diagnoses that have resulted to mobility limitations, gait instability, generalized weakness, and impairment of motor control as demonstrated by the following impairment level findings: 1. Decreased strength to rightknee major muscle groups 2. Impaired standing balance 3. Limitation of joint range of motion in right knee Impairments are contributing to the following functional limitations: 1. Inability to safely ambulate without assistive device 2. Increase completion time for mobility ADL performance 3. Increased fall risk Patient is assessed as low complexity based on the following: History: 64-year-old female with impairment level findings, functional limitations, and past medical history as indicated above Examination: Demonstrable impairment in strength, balance, and mobility level with underlying impairments and functional limitations as documented above Presentation: stable Decision Making: low Goals: N/A. PT evaluation and 1-2 treatment sessions only for functional mobility training using recommended AD and for HEP instruction. Plan of Care/Treatment Plan: N/A. PT evaluation and 1-2 treatment session only for functional mobility training using recommended AD and for HEP instruction. DISCHARGE RECOMMENDATIONS: Home with outpatient PT as per ortho TREATMENT CODE/TIME: 5579-0811; [id number] ([id number], [id number]) Thank you for the opportunity to participate in the care of this patient. Sumaya Durham, PT, DPT [facility]
== END 2025-04-05 16:47 | disposition home or self-care (01) ==
PROVIDERS: PCP Nurse Practitioner Family; Visit Provider Student in an Organized Health Care Education/Training Program
PROC: (CPT 27447; principal; 2025-04-05 10:30)
DX: M17.11 Unilateral primary osteoarthritis, right knee (principal); G89.18 Other acute postprocedural pain; Z68.41 Body mass index [BMI] 40.0-44.9, adult; G47.33 Obstructive sleep apnea (adult) (pediatric); E66.813 Obesity, class 3; E78.5 Hyperlipidemia, unspecified; J45.909 Unspecified asthma, uncomplicated
CPT/HCPCS: 27447; 64447; 97110; 97161; C1776; J0665; J0690; J2371; J2401; J2405; J2704